=== PATIENT | female | born 1950 | race African-American/Black ===

== ENCOUNTER 2016-08-20 17:08 | Emergency (ER) | payer OTHER ==
[~2016-08-20] VITALS: Ht 152.4 cm; Wt 49.1 kg
[~2016-08-20 17:08] MED LIST: AMLO-512 PO; ASPI-556 PO; CHOL20004 PO; FERR-89 PO; FOLI1CAP2 PO
[2016-08-20 17:11] VITALS: BP 159/93
[2016-08-20] MEDS ORDERED: INSLAN SQ (17:21)
[2016-08-20] MEDS ORDERED: OXYC10TA93 PO (17:21)
[2016-08-20] MEDS ORDERED: INSU100V3 SQ (17:21)
[2016-08-20 17:22] LABS: GLUCOSE,POINT OF CARE 61 MG/DL (70-110)
[2016-08-20 18:07] LABS: GLUCOSE,POINT OF CARE 75 MG/DL (70-110)
== END 2016-08-20 18:45 | disposition left against medical advice (07) ==
LOC: EMS 17:15
DX: R53.1 Weakness (principal); E11.29 Type 2 diabetes mellitus with other diabetic kidney complication; N28.9 Disorder of kidney and ureter, unspecified; F17.210 Nicotine dependence, cigarettes, uncomplicated; Z53.21 Procedure and treatment not carried out due to patient leaving prior to being seen by health care provider
CPT/HCPCS: 82962

== ENCOUNTER 2016-08-22 10:51 | Emergency (ER) | payer OTHER ==
[~2016-08-22] VITALS: Ht 152.4 cm; Wt 42.0 kg
[~2016-08-22 10:51] MED LIST changes: +INSLAN SQ; +INSU100V3 SQ; +OXYC10TA93 PO
[2016-08-22 11:50] LABS: CALCIUM, TOTAL 8.6 mg/dL (8.8-10.5); CREATININE 5.66 mg/dL (0.60-1.30); POTASSIUM 4.4 mmol/L (3.5-5.1)
[2016-08-22 11:56] LABS: BILIRUBIN,TOTAL 0.5 mg/dL (0.1-1.0); TOTAL PROTEIN, SERUM 8.8 g/dL (6.4-8.2)
[2016-08-22 12:02] LABS: ALBUMIN 3.1 g/dL (3.4-5.0)
[2016-08-22 12:06] LABS: EOSINOPHILS % (AUTO) 1.5 % (1.0-6.0); HEMATOCRIT 35.1 % (36-46); HEMOGLOBIN 10.9 g/dL (12.0-16.0); LYMPHOCYTES # (AUTO) 1.3 K/uL (1.0-4.8); LYMPHOCYTES % (AUTO) 17.2 % (22.0-44.0); MEAN CORPUSCULAR HEMOGLOBIN 29.5 pg (26.0-34.0); MEAN CORPUSCULAR HGB CONC 31.1 G/dL (31.0-37.0); MEAN CORPUSCULAR VOLUME 95 fL (80-100); MONOCYTES # (AUTO) 0.5 K/uL (0.1-1.0); NEUTROPHILS # (AUTO) 5.6 K/uL (1.8-7.7); NEUTROPHILS % (AUTO) 75.3 % (40.0-70.0); PLATELET COUNT (AUTO) 260 K/uL (150-450); RED BLOOD CELL COUNT(AUTO) 3.71 MIL/uL (4.00-5.20); RED CELL DISTRIBUTION WIDTH 16.5 % (11.5-14.5); WHITE BLOOD COUNT (AUTO) 7.5 K/uL (4.5-11.0)
[2016-08-22] MEDS ORDERED: ONDANSETRON HCL 4 MG/2 ML VIAL IM ONE (13:00)
[2016-08-22] MEDS ORDERED: MORPHINE SULFATE 2 MG/ML SYRINGE IM ONE (13:00)
[2016-08-22 13:22] LABS: GLUCOSE,POINT OF CARE 102 MG/DL (70-110)
[2016-08-22] MEDS ORDERED: ONDANSETRON HCL 4 MG/2 ML VIAL IVP ONE (14:00)
[2016-08-22] MEDS ORDERED: MORPHINE SULFATE 4 MG/ML SYRINGE IVP ONE (14:00)
[2016-08-22 14:01] VITALS: BP 153/79
[2016-08-22 14:02] LABS: GLUCOSE,POINT OF CARE 37 MG/DL (70-110)
[2016-08-22 14:41] LABS: GLUCOSE,POINT OF CARE 43 MG/DL (70-110)
[2016-08-22 14:41] LABS: GLUCOSE,POINT OF CARE 50 MG/DL (70-110)
[2016-08-22] MEDS ORDERED: DEXTROSE 50%-WATER 25 GM/50 ML SYRINGE IVP ONE (14:45)
[2016-08-22] MEDS ORDERED: DEXTROSE 40% LEMON 37.5 GM/TUBE GEL [15 GM GLUCOSE] PO ONE (14:45)
[2016-08-22 15:01] LABS: GLUCOSE,POINT OF CARE 64 MG/DL (70-110)
[2016-08-22 15:12] LABS: GLUCOSE,POINT OF CARE 90 MG/DL (70-110)
== END 2016-08-22 15:21 | disposition home or self-care (01) ==
LOC: EMS 10:52
DX: S20.212A Contusion of left front wall of thorax, initial encounter (principal); I50.9 Heart failure, unspecified; E11.22 Type 2 diabetes mellitus with diabetic chronic kidney disease; N18.6 End stage renal disease; D64.9 Anemia, unspecified; F17.210 Nicotine dependence, cigarettes, uncomplicated; Z99.2 Dependence on renal dialysis; Z79.4 Long term (current) use of insulin; Z79.82 Long term (current) use of aspirin; X58.XXXA Exposure to other specified factors, initial encounter; Y93.89 Activity, other specified; Y92.89 Other specified places as the place of occurrence of the external cause; Y99.8 Other external cause status
CPT/HCPCS: 36415; 71010; 80053; 82962; 83880; 84484; 85025; 93005; 96374; 96375; 99285; J2270; J2405

== ENCOUNTER 2016-08-30 19:58 | Inpatient (IN) | payer OTHER ==
[~2016-08-30] VITALS: Ht 165.1 cm; Wt 48.7 kg
[2016-08-30 20:31] LABS: GLUCOSE COMMENT 1 Repeated; GLUCOSE,POINT OF CARE 239 MG/DL (70-110)
[2016-08-30 22:17] LABS: GLUCOSE,POINT OF CARE 168 MG/DL (70-110)
[2016-08-30] MEDS ORDERED: HYDROmorphone 2 MG/ML SYRINGE IVP ONE (23:00)
[2016-08-30] MEDS ORDERED: ONDANSETRON HCL 4 MG/2 ML VIAL IVP ONE (23:00)
[2016-08-30] MEDS ORDERED: ONDANSETRON HCL 4 MG/2 ML VIAL IVP PRN (23:15)
[2016-08-30] MEDS ORDERED: ACETAMINOPHEN 325 MG TABLET PO PRN (23:15)
[2016-08-30] MEDS ORDERED: 0.9% SODIUM CHLORIDE 10 ML SYRINGE IVP PRN (23:15)
[2016-08-30 23:22] LABS: BASOPHILS # (AUTO) 0.03 K/uL (0.00-0.20); BASOPHILS % (AUTO) 0.3 % (0.0-2.0); EOSINOPHILS # (AUTO) 0.21 K/uL (0.00-0.70); HEMATOCRIT 30.1 % (36-46); HEMOGLOBIN 9.7 g/dL (12.0-16.0); LYMPHOCYTES # (AUTO) 1.3 K/uL (1.0-4.8); LYMPHOCYTES % (AUTO) 13.1 % (22.0-44.0); MEAN CORPUSCULAR HEMOGLOBIN 30.2 pg (26.0-34.0); MEAN CORPUSCULAR HGB CONC 32.2 G/dL (31.0-37.0); MEAN CORPUSCULAR VOLUME 94 fL (80-100); MONOCYTES # (AUTO) 0.7 K/uL (0.1-1.0); MONOCYTES % (AUTO) 7.1 % (2.0-9.0); NEUTROPHILS # (AUTO) 7.9 K/uL (1.8-7.7); NEUTROPHILS % (AUTO) 77.4 % (40.0-70.0); PLATELET COUNT (AUTO) 346 K/uL (150-450); RED BLOOD CELL COUNT(AUTO) 3.21 MIL/uL (4.00-5.20); RED CELL DISTRIBUTION WIDTH 16.8 % (11.5-14.5); WHITE BLOOD COUNT (AUTO) 10.2 K/uL (4.5-11.0)
[2016-08-30 23:30] LABS: CALCIUM, TOTAL 8.3 mg/dL (8.8-10.5); CREATININE 5.86 mg/dL (0.60-1.30); POTASSIUM 4.6 mmol/L (3.5-5.1)
[2016-08-30 23:36] LABS: ALBUMIN 2.7 g/dL (3.4-5.0); BILIRUBIN,TOTAL 0.5 mg/dL (0.1-1.0); TOTAL PROTEIN, SERUM 8.3 g/dL (6.4-8.2)
[2016-08-30 23:39] LABS: LACTIC ACID 1.6 mmol/L (0.4-2.0)
[2016-08-31] MEDS ORDERED: HydrALAZINE HCL 20 MG/ML VIAL IVP PRN (02:00)
[2016-08-31 05:00] VITALS: BP 156/88
[2016-08-31] MEDS: OxyCODONE HCL 10 MG IR TABLET PO PRN (05:22)
[2016-08-31] MEDS ORDERED: DEXTROSE 50%-WATER 25 GM/50 ML SYRINGE IVP PRN (05:45)
[2016-08-31 05:57] LABS: GLUCOSE,POINT OF CARE 204 MG/DL (70-110)
[2016-08-31] MEDS ORDERED: OxyCODONE HCL/ACETAMINOPHEN 5-325 MG TABLET PO PRN (06:00)
[2016-08-31] MEDS ORDERED: ONDANSETRON HCL 4 MG/2 ML VIAL IVP PRN (06:00)
[2016-08-31] MEDS ORDERED: 0.9% SODIUM CHLORIDE 10 ML SYRINGE IVP PRN (06:00)
[2016-08-31 07:43] VITALS: BP 151/89
[2016-08-31] MEDS: FERROUS SULFATE 325 MG EC TABLET PO SCH ×2 (07:47→17:36)
[2016-08-31] MEDS: DOCUSATE SODIUM 100 MG CAPSULE PO SCH ×2 (07:48→21:08)
[2016-08-31] MEDS: PANTOPRAZOLE SODIUM 40 MG/VIAL IVP SCH (07:48)
[2016-08-31] MEDS: VITAMIN B COMP/VIT C/FOLIC ACID CAPSULE PO SCH (07:48)
[2016-08-31] MEDS: ASPIRIN 81 MG EC TABLET PO SCH (07:48)
[2016-08-31] MEDS: AmLODIPine BESYLATE 10 MG TABLET PO SCH (07:48)
[2016-08-31] MEDS: INSULIN DETEMIR 100 UNITS/ML SQ SCH (07:50)
[2016-08-31] MEDS: INSULIN REGULAR, HUMAN 100 UNITS/ML SQ SCH ×3 (08:21→17:33)
[2016-08-31 11:08] VITALS: BP 158/90
[2016-08-31 11:43] LABS: GLUCOSE COMMENT 1 Received Meds; GLUCOSE,POINT OF CARE 184 MG/DL (70-110)
[2016-08-31] MEDS ORDERED: SODIUM CHLORIDE 0.9% 2,000 ML IV ONE (12:37)
[2016-08-31] MEDS ORDERED: MANNITOL 25%-12.5 GM/50 ML VIAL IVP PRN (13:45)
[2016-08-31 15:49] VITALS: BP 140/75
[2016-08-31 17:32] LABS: GLUCOSE COMMENT 1 Received Meds; GLUCOSE,POINT OF CARE 105 MG/DL (70-110)
[2016-08-31] MEDS: EPOETIN ALFA 10,000 UNITS/ML 2 ML VIAL SQ SCH (17:38)
[2016-08-31 19:15] VITALS: BP 142/84
[2016-08-31 21:37] LABS: GLUCOSE,POINT OF CARE 98 MG/DL (70-110)
[2016-09-01 00:37] VITALS: BP 139/78
[2016-09-01 04:44] VITALS: BP 142/75
[2016-09-01 06:17] LABS: GLUCOSE,POINT OF CARE 146 MG/DL (70-110)
[2016-09-01] MEDS: VITAMIN B COMP/VIT C/FOLIC ACID CAPSULE PO SCH (08:02)
[2016-09-01] MEDS: OxyCODONE HCL/ACETAMINOPHEN 5-325 MG TABLET PO PRN ×2 (08:02→20:54)
[2016-09-01] MEDS: FERROUS SULFATE 325 MG EC TABLET PO SCH (08:02)
[2016-09-01] MEDS: DOCUSATE SODIUM 100 MG CAPSULE PO SCH ×2 (08:03→20:54)
[2016-09-01] MEDS: ASPIRIN 81 MG EC TABLET PO SCH (08:03)
[2016-09-01] MEDS: PANTOPRAZOLE SODIUM 40 MG/VIAL IVP SCH (08:03)
[2016-09-01] MEDS: INSULIN REGULAR, HUMAN 100 UNITS/ML SQ SCH (08:04)
[2016-09-01] MEDS: AmLODIPine BESYLATE 10 MG TABLET PO SCH (08:06)
[2016-09-01] MEDS: INSULIN DETEMIR 100 UNITS/ML SQ SCH (08:06)
[2016-09-01 08:30] VITALS: BP 150/84
[2016-09-01 08:53] LABS: BASOPHILS % (AUTO) 0.2 % (0.0-2.0); EOSINOPHILS % (AUTO) 2.3 % (1.0-6.0); HEMATOCRIT 29.2 % (36-46); HEMOGLOBIN 9.2 g/dL (12.0-16.0); LYMPHOCYTES # (AUTO) 1.3 K/uL (1.0-4.8); LYMPHOCYTES % (AUTO) 13.6 % (22.0-44.0); MEAN CORPUSCULAR HEMOGLOBIN 29.9 pg (26.0-34.0); MEAN CORPUSCULAR HGB CONC 31.6 G/dL (31.0-37.0); MEAN CORPUSCULAR VOLUME 95 fL (80-100); MONOCYTES # (AUTO) 0.9 K/uL (0.1-1.0); MONOCYTES % (AUTO) 8.8 % (2.0-9.0); NEUTROPHILS # (AUTO) 7.4 K/uL (1.8-7.7); NEUTROPHILS % (AUTO) 75.1 % (40.0-70.0); PLATELET COUNT (AUTO) 354 K/uL (150-450); RED BLOOD CELL COUNT(AUTO) 3.08 MIL/uL (4.00-5.20); RED CELL DISTRIBUTION WIDTH 17.6 % (11.5-14.5); WHITE BLOOD COUNT (AUTO) 9.9 K/uL (4.5-11.0)
[2016-09-01 09:12] LABS: CALCIUM, TOTAL 8.2 mg/dL (8.8-10.5); CREATININE 3.53 mg/dL (0.60-1.30); PHOSPHORUS 4.9 mg/dL (2.5-4.9); POTASSIUM 4.5 mmol/L (3.5-5.1)
[2016-09-01 11:15] VITALS: BP 140/82
[2016-09-01 12:47] LABS: GLUCOSE COMMENT 1 Repeated; GLUCOSE COMMENT 3 Received Meds; GLUCOSE,POINT OF CARE 48 MG/DL (70-110)
[2016-09-01 12:52] LABS: GLUCOSE,POINT OF CARE 83 MG/DL (70-110)
[2016-09-01 16:00] VITALS: BP 141/76
[2016-09-01 19:22] VITALS: BP 141/76
[2016-09-01 19:51] LABS: GLUCOSE,POINT OF CARE 141 MG/DL (70-110)
[2016-09-01] MEDS ORDERED: OXYGEN THERAPY IH SCH (20:00)
[2016-09-02 00:18] VITALS: BP 142/78
[2016-09-02] MEDS: OxyCODONE HCL 10 MG IR TABLET PO PRN ×2 (00:34→10:31)
[2016-09-02 01:32] LABS: GLUCOSE,POINT OF CARE 118 MG/DL (70-110)
[2016-09-02 05:00] VITALS: BP 138/79
[2016-09-02] MEDS: VITAMIN B COMP/VIT C/FOLIC ACID CAPSULE PO SCH (07:53)
[2016-09-02] MEDS: ASPIRIN 81 MG EC TABLET PO SCH (07:54)
[2016-09-02] MEDS: DOCUSATE SODIUM 100 MG CAPSULE PO SCH ×2 (07:54→20:51)
[2016-09-02] MEDS: AmLODIPine BESYLATE 10 MG TABLET PO SCH (07:54)
[2016-09-02] MEDS: PANTOPRAZOLE SODIUM 40 MG/VIAL IVP SCH (07:54)
[2016-09-02] MEDS: EPOETIN ALFA 10,000 UNITS/ML 2 ML VIAL SQ SCH (07:56)
[2016-09-02 08:13] VITALS: BP 156/91
[2016-09-02] MEDS: FERROUS SULFATE 325 MG EC TABLET PO SCH (08:42)
[2016-09-02 08:51] LABS: CALCIUM, TOTAL 8.7 mg/dL (8.8-10.5); CREATININE 4.81 mg/dL (0.60-1.30); POTASSIUM 5.3 mmol/L (3.5-5.1)
[2016-09-02] MEDS: INSULIN DETEMIR 100 UNITS/ML SQ SCH (09:00)
[2016-09-02] MEDS ORDERED: SODIUM CHLORIDE 0.9% 2,000 ML IV ONE (11:09)
[2016-09-02 11:25] VITALS: BP 139/90
[2016-09-02] MEDS: INSULIN ASPART 100 UNITS/ML SQ PRN (11:49)
[2016-09-02 11:52] LABS: GLUCOSE COMMENT 1 Received Meds; GLUCOSE,POINT OF CARE 192 MG/DL (70-110)
[2016-09-02 12:23] LABS: GLUCOSE,POINT OF CARE 121 MG/DL (70-110)
[2016-09-02 16:10] VITALS: BP 138/88
[2016-09-02 17:12] LABS: GLUCOSE,POINT OF CARE 106 MG/DL (70-110)
[2016-09-02] MEDS: OxyCODONE HCL/ACETAMINOPHEN 5-325 MG TABLET PO PRN (20:55)
[2016-09-02 21:17] VITALS: BP 137/78
[2016-09-02 22:02] LABS: GLUCOSE,POINT OF CARE 137 MG/DL (70-110)
[2016-09-03 07:42] VITALS: BP 139/78
[2016-09-03] MEDS: FERROUS SULFATE 325 MG EC TABLET PO SCH ×3 (08:00→18:03)
[2016-09-03 08:14] LABS: VITAMIN B12 LEVEL 369 pg/mL (211-911)
[2016-09-03] MEDS: ASPIRIN 81 MG EC TABLET PO SCH (08:14)
[2016-09-03] MEDS: AmLODIPine BESYLATE 10 MG TABLET PO SCH (08:14)
[2016-09-03] MEDS: VITAMIN B COMP/VIT C/FOLIC ACID CAPSULE PO SCH (08:14)
[2016-09-03] MEDS: DOCUSATE SODIUM 100 MG CAPSULE PO SCH ×2 (08:15→20:54)
[2016-09-03] MEDS: OxyCODONE HCL/ACETAMINOPHEN 5-325 MG TABLET PO PRN (08:15)
[2016-09-03] MEDS: PANTOPRAZOLE SODIUM 40 MG/VIAL IVP SCH (08:16)
[2016-09-03] MEDS: INSULIN DETEMIR 100 UNITS/ML SQ SCH (08:17)
[2016-09-03 08:41] LABS: GLUCOSE,POINT OF CARE 156 MG/DL (70-110)
[2016-09-03 11:52] LABS: GLUCOSE COMMENT 1 Received Meds; GLUCOSE,POINT OF CARE 256 MG/DL (70-110)
[2016-09-03 12:18] VITALS: BP 152/70
[2016-09-03] MEDS: INSULIN ASPART 100 UNITS/ML SQ PRN (12:56)
[2016-09-03] MEDS: OxyCODONE HCL 10 MG IR TABLET PO PRN (13:59)
[2016-09-03] MEDS ORDERED: INSU100V12 SQ (15:47)
[2016-09-03] MEDS ORDERED: INSNOV SQ (15:49)
[2016-09-03 16:01] VITALS: BP 134/63
[2016-09-03 17:42] LABS: GLUCOSE COMMENT 1 Doctor Notified; GLUCOSE,POINT OF CARE 47 MG/DL (70-110)
[2016-09-03 19:53] VITALS: BP 119/77
[2016-09-03 23:30] VITALS: BP 122/70
[2016-09-04 03:15] VITALS: BP 118/68
[2016-09-04 05:01] LABS: GLUCOSE,POINT OF CARE 105 MG/DL (70-110)
[2016-09-04 07:19] VITALS: BP 148/84
[2016-09-04] MEDS: DOCUSATE SODIUM 100 MG CAPSULE PO SCH (08:15)
[2016-09-04] MEDS: ASPIRIN 81 MG EC TABLET PO SCH (08:15)
[2016-09-04] MEDS: AmLODIPine BESYLATE 10 MG TABLET PO SCH (08:16)
[2016-09-04] MEDS: VITAMIN B COMP/VIT C/FOLIC ACID CAPSULE PO SCH (08:16)
[2016-09-04] MEDS: EPOETIN ALFA 10,000 UNITS/ML 2 ML VIAL SQ SCH (08:18)
[2016-09-04] MEDS: FERROUS SULFATE 325 MG EC TABLET PO SCH (08:22)
[2016-09-04] MEDS: PANTOPRAZOLE SODIUM 40 MG/VIAL IVP SCH (08:22)
[2016-09-04] MEDS: OxyCODONE HCL/ACETAMINOPHEN 5-325 MG TABLET PO PRN (08:23)
[2016-09-04] MEDS: INSULIN DETEMIR 100 UNITS/ML SQ SCH (09:00)
[2016-09-04 11:17] LABS: GLUCOSE,POINT OF CARE 128 MG/DL (70-110)
[2016-09-04 11:22] LABS: GLUCOSE,POINT OF CARE 108 MG/DL (70-110)
[2016-09-04 12:00] VITALS: BP 136/68
[2016-09-04 12:17] LABS: GLUCOSE,POINT OF CARE 149 MG/DL (70-110)
[2016-09-04 16:30] VITALS: BP 139/88
[2016-09-04] MEDS ORDERED: SODIUM CHLORIDE 0.9% 2,000 ML IV ONE (16:32)
[2016-09-04 18:41] LABS: GLUCOSE,POINT OF CARE 91 MG/DL (70-110)
== END 2016-09-04 20:00 | DRG 194 ==
LOC: EMS 20:02 → 6N 23:15
PROVIDERS: ADMIT Internal Medicine; ATTEND Internal Medicine
PROC: 5A1D60Z (ICD-10-PCS; principal; 2016-08-31)
DX: I13.2 Hypertensive heart and chronic kidney disease with heart failure and with stage 5 chronic kidney disease, or end stage renal disease (principal); G72.81 Critical illness myopathy; E43 Unspecified severe protein-calorie malnutrition; G93.41 Metabolic encephalopathy; E87.79 Other fluid overload; N18.6 End stage renal disease; Z68.1 Body mass index [BMI] 19.9 or less, adult; E87.5 Hyperkalemia; E11.22 Type 2 diabetes mellitus with diabetic chronic kidney disease; R29.6 Repeated falls; F17.210 Nicotine dependence, cigarettes, uncomplicated; I50.9 Heart failure, unspecified; E11.65 Type 2 diabetes mellitus with hyperglycemia; D63.8 Anemia in other chronic diseases classified elsewhere; B19.20 Unspecified viral hepatitis C without hepatic coma; E21.3 Hyperparathyroidism, unspecified; K21.9 Gastro-esophageal reflux disease without esophagitis; F19.90 Other psychoactive substance use, unspecified, uncomplicated; R62.7 Adult failure to thrive; Z99.2 Dependence on renal dialysis; Z79.891 Long term (current) use of opiate analgesic; Z79.4 Long term (current) use of insulin; Z79.82 Long term (current) use of aspirin; Z79.899 Other long term (current) drug therapy; Z91.15 Patient's noncompliance with renal dialysis; Z74.01 Bed confinement status
CPT/HCPCS: 70450; 80307; 82607; 82746; 82962; 83605; 84100; 87040; 87081; 90935; 93005; 96374; 96375; 97161; 99285; C9113; J0360; J0885; J1170; J1815; J2405; J7030

== ENCOUNTER 2016-09-11 23:10 | Inpatient (IN) | payer OTHER ==
[~2016-09-11] VITALS: Ht 152.4 cm; Wt 58.0 kg
[~2016-09-11 23:10] MED LIST changes: +INSNOV SQ; +INSU100V12 SQ
[2016-09-11] MEDS ORDERED: PANT20TA PO (23:37)
[2016-09-11] MEDS ORDERED: EPOE4000 SQ (23:37)
[2016-09-11 23:52] LABS: BASOPHILS # (AUTO) 0.05 K/uL (0.00-0.20); BASOPHILS % (AUTO) 0.5 % (0.0-2.0); EOSINOPHILS # (AUTO) 0.15 K/uL (0.00-0.70); EOSINOPHILS % (AUTO) 1.28 % (1.0-6.0); HEMATOCRIT 25.2 % (36-46); HEMOGLOBIN 8.2 g/dL (12.0-16.0); LYMPHOCYTES # (AUTO) 1.6 K/uL (1.0-4.8); LYMPHOCYTES % (AUTO) 13.8 % (22.0-44.0); MEAN CORPUSCULAR HEMOGLOBIN 29.7 pg (26.0-34.0); MEAN CORPUSCULAR HGB CONC 32.7 G/dL (31.0-37.0); MEAN CORPUSCULAR VOLUME 91 fL (80-100); MONOCYTES # (AUTO) 1.2 K/uL (0.1-1.0); MONOCYTES % (AUTO) 10.8 % (2.0-9.0); NEUTROPHILS # (AUTO) 8.5 K/uL (1.8-7.7); NEUTROPHILS % (AUTO) 73.7 % (40.0-70.0); PLATELET COUNT (AUTO) 464 K/uL (150-450); RED BLOOD CELL COUNT(AUTO) 2.78 MIL/uL (4.00-5.20); RED CELL DISTRIBUTION WIDTH 16.5 % (11.5-14.5); WHITE BLOOD COUNT (AUTO) 11.5 K/uL (4.5-11.0)
[2016-09-11 23:56] LABS: CREATININE 3.8 mg/dL (0.60-1.30); POTASSIUM 3.4 mmol/L (3.5-5.1)
[2016-09-12 00:02] LABS: ALBUMIN 2.3 g/dL (3.4-5.0); BILIRUBIN,TOTAL 0.3 mg/dL (0.1-1.0); TOTAL PROTEIN, SERUM 7.6 g/dL (6.4-8.2)
[2016-09-12 00:05] LABS: LACTIC ACID 0.5 mmol/L (0.4-2.0)
[2016-09-12 00:40] LABS: APPEARANCE,URINE TURBID (CLEAR); GLUCOSE, URINE (UA) NEGATIVE (NEGATIVE); KETONES,URINE TRACE mg/dL (NEGATIVE); LEUKOCYTE ESTERASE ,URINE SMALL (NEGATIVE); OCCULT BLOOD,URINE SMALL (NEGATIVE); PROTEIN,URINE SEE CONFIRM (NEGATIVE)
[2016-09-12 01:17] LABS: SULFOSALICYLIC ACID,URINE 2+ (Negative)
[2016-09-12 01:18] LABS: SQUAMOUS EPITHELIAL CELL,UR Rare /LPF (None Seen)
[2016-09-12 03:53] VITALS: BP 157/77
[2016-09-12] MEDS ORDERED: INFLUENZA VIRUS VACCINE QVS 2016-17 (3YR+)/PF 60 MCG/0.5 ML SYRINGE IM ONE (04:15)
[2016-09-12] MEDS ORDERED: -PHARMACY VACCINE NOTE- MISC ONE ×2 (04:15)
[2016-09-12 04:42] LABS: GLUCOSE COMMENT 1 Juice/Food/D50 Given; GLUCOSE,POINT OF CARE 69 MG/DL (70-110)
[2016-09-12] MEDS ORDERED: ALBUTEROL SULFATE 2.5 MG/0.5 ML NEB SOLUTION NEB PRN (06:45)
[2016-09-12] MEDS ORDERED: DEXTROSE 50%-WATER 25 GM/50 ML SYRINGE IVP PRN (06:45)
[2016-09-12] MEDS ORDERED: BISACODYL 10 MG RECTAL RECTAL SUPPOSITORY PR PRN (06:45)
[2016-09-12 06:51] LABS: GLUCOSE COMMENT 1 Juice/Food/D50 Given; GLUCOSE,POINT OF CARE 72 MG/DL (70-110)
[2016-09-12] MEDS ORDERED: VANCOMYCIN HCL 1 GM/D5% WATER 200 ML IV PRN (07:00)
[2016-09-12 07:29] VITALS: BP 165/71
[2016-09-12] MEDS ORDERED: VANCOMYCIN HCL 1.25 GM in DEXTROSE 5%-WATER 250 ML IV ONE (08:00)
[2016-09-12] MEDS: PANTOPRAZOLE SODIUM 40 MG DR TABLET PO SCH (08:39)
[2016-09-12] MEDS: DOCUSATE SODIUM 100 MG CAPSULE PO SCH ×2 (08:39→20:18)
[2016-09-12] MEDS: VITAMIN B COMP/VIT C/FOLIC ACID CAPSULE PO SCH (08:39)
[2016-09-12] MEDS: ASPIRIN 81 MG CHEWABLE TABLET PO SCH (08:39)
[2016-09-12] MEDS: HEPARIN SODIUM,PORCINE 5,000 UNITS/ML VIAL SQ SCH ×2 (08:40→20:17)
[2016-09-12] MEDS ORDERED: DiphenhydrAMINE HCL 50 MG/ML VIAL IVP ONE (10:00)
[2016-09-12] MEDS ORDERED: SODIUM CHLORIDE 0.9% 500 ML IV ONE (10:47)
[2016-09-12 11:32] LABS: GLUCOSE,POINT OF CARE 93 MG/DL (70-110)
[2016-09-12 11:37] VITALS: BP 141/87
[2016-09-12 16:00] VITALS: BP 147/69
[2016-09-12 19:37] LABS: GLUCOSE,POINT OF CARE 93 MG/DL (70-110)
[2016-09-12] MEDS: INSULIN ASPART 100 UNITS/ML SQ PRN (20:17)
[2016-09-12] MEDS: ACETAMINOPHEN 325 MG TABLET PO PRN (20:18)
[2016-09-12 20:49] VITALS: BP 148/87
[2016-09-12 21:21] LABS: GLUCOSE COMMENT 1 Received Meds; GLUCOSE,POINT OF CARE 186 MG/DL (70-110)
[2016-09-12 23:49] VITALS: BP 114/57
[2016-09-13] MEDS: ACETAMINOPHEN 325 MG TABLET PO PRN (04:20)
[2016-09-13 04:55] VITALS: BP 125/74
[2016-09-13] MEDS: INSULIN ASPART 100 UNITS/ML SQ PRN ×2 (05:48→18:09)
[2016-09-13 07:47] LABS: GLUCOSE COMMENT 1 Received Meds; GLUCOSE,POINT OF CARE 176 MG/DL (70-110)
[2016-09-13] MEDS: PANTOPRAZOLE SODIUM 40 MG DR TABLET PO SCH (07:58)
[2016-09-13] MEDS: HEPARIN SODIUM,PORCINE 5,000 UNITS/ML VIAL SQ SCH ×2 (07:58→20:50)
[2016-09-13] MEDS: OxyCODONE HCL/ACETAMINOPHEN 5-325 MG TABLET PO PRN ×3 (07:58→22:27)
[2016-09-13] MEDS: VITAMIN B COMP/VIT C/FOLIC ACID CAPSULE PO SCH (07:58)
[2016-09-13] MEDS: ASPIRIN 81 MG CHEWABLE TABLET PO SCH (07:58)
[2016-09-13] MEDS: DOCUSATE SODIUM 100 MG CAPSULE PO SCH ×2 (07:58→20:50)
[2016-09-13 08:20] VITALS: BP 143/73
[2016-09-13] MEDS ORDERED: EPOETIN ALFA 10,000 UNITS/ML VIAL SQ SCH (09:00)
[2016-09-13 11:43] VITALS: BP 144/84
[2016-09-13 12:17] LABS: GLUCOSE COMMENT 1 Received Meds; GLUCOSE,POINT OF CARE 142 MG/DL (70-110)
[2016-09-13] MEDS ORDERED: SODIUM CHLORIDE 0.9% 0 ML ONE (12:55)
[2016-09-13] MEDS ORDERED: SODIUM CHLORIDE 0.9% 1,000 ML IV ONE ×2 (12:56)
[2016-09-13 16:45] LABS: BASOPHILS % (AUTO) 0.3 % (0.0-2.0); EOSINOPHILS % (AUTO) 2.5 % (1.0-6.0); HEMATOCRIT 28.7 % (36-46); HEMOGLOBIN 9.1 g/dL (12.0-16.0); LYMPHOCYTES # (AUTO) 1.5 K/uL (1.0-4.8); LYMPHOCYTES % (AUTO) 11.6 % (22.0-44.0); MEAN CORPUSCULAR HEMOGLOBIN 28.9 pg (26.0-34.0); MEAN CORPUSCULAR HGB CONC 31.6 G/dL (31.0-37.0); MEAN CORPUSCULAR VOLUME 91 fL (80-100); MONOCYTES # (AUTO) 0.9 K/uL (0.1-1.0); MONOCYTES % (AUTO) 6.5 % (2.0-9.0); NEUTROPHILS # (AUTO) 10.4 K/uL (1.8-7.7); NEUTROPHILS % (AUTO) 79.1 % (40.0-70.0); PLATELET COUNT (AUTO) 575 K/uL (150-450); RED BLOOD CELL COUNT(AUTO) 3.14 MIL/uL (4.00-5.20); WHITE BLOOD COUNT (AUTO) 13.2 K/uL (4.5-11.0)
[2016-09-13 17:05] LABS: ALBUMIN 2.6 g/dL (3.4-5.0); BILIRUBIN,TOTAL 0.3 mg/dL (0.1-1.0); CALCIUM, TOTAL 8.6 mg/dL (8.8-10.5); CREATININE 1.46 mg/dL (0.60-1.30); TOTAL PROTEIN, SERUM 8.8 g/dL (6.4-8.2)
[2016-09-13 17:08] LABS: POTASSIUM 2.7 mmol/L (3.5-5.1)
[2016-09-13] MEDS: CefTRIAXone 1 GM/DEXTROSE 50 ML IV SCH (17:59)
[2016-09-13 19:47] LABS: GLUCOSE,POINT OF CARE 141 MG/DL (70-110)
[2016-09-13 20:43] VITALS: BP 140/71
[2016-09-13] MEDS ORDERED: POTASSIUM CHLORIDE 20 MEQ ER TABLET PO ONE (21:15)
[2016-09-13 21:36] LABS: GLUCOSE,POINT OF CARE 92 MG/DL (70-110)
[2016-09-13 21:36] LABS: GLUCOSE COMMENT 1 Juice/Food/D50 Given; GLUCOSE,POINT OF CARE 66 MG/DL (70-110)
[2016-09-14 00:10] VITALS: BP 132/65
[2016-09-14 04:35] VITALS: BP 125/57
[2016-09-14] MEDS: OxyCODONE HCL/ACETAMINOPHEN 5-325 MG TABLET PO PRN ×2 (05:02→12:01)
[2016-09-14 05:27] LABS: GLUCOSE,POINT OF CARE 106 MG/DL (70-110)
[2016-09-14] MEDS: HEPARIN SODIUM,PORCINE 5,000 UNITS/ML VIAL SQ SCH (08:27)
[2016-09-14] MEDS: VITAMIN B COMP/VIT C/FOLIC ACID CAPSULE PO SCH (08:27)
[2016-09-14] MEDS: ASPIRIN 81 MG CHEWABLE TABLET PO SCH (08:27)
[2016-09-14] MEDS: PANTOPRAZOLE SODIUM 40 MG DR TABLET PO SCH (08:27)
[2016-09-14] MEDS: DOCUSATE SODIUM 100 MG CAPSULE PO SCH (08:27)
[2016-09-14 11:23] LABS: BASOPHILS # (AUTO) 0.04 K/uL (0.00-0.20); BASOPHILS % (AUTO) 0.4 % (0.0-2.0); EOSINOPHILS # (AUTO) 0.31 K/uL (0.00-0.70); EOSINOPHILS % (AUTO) 3.37 % (1.0-6.0); HEMATOCRIT 25.7 % (36-46); HEMOGLOBIN 8.3 g/dL (12.0-16.0); LYMPHOCYTES # (AUTO) 1.7 K/uL (1.0-4.8); LYMPHOCYTES % (AUTO) 18.5 % (22.0-44.0); MEAN CORPUSCULAR HEMOGLOBIN 29.5 pg (26.0-34.0); MEAN CORPUSCULAR HGB CONC 32.4 G/dL (31.0-37.0); MEAN CORPUSCULAR VOLUME 91 fL (80-100); MONOCYTES % (AUTO) 10.4 % (2.0-9.0); NEUTROPHILS # (AUTO) 6.2 K/uL (1.8-7.7); NEUTROPHILS % (AUTO) 67.3 % (40.0-70.0); PLATELET COUNT (AUTO) 495 K/uL (150-450); RED BLOOD CELL COUNT(AUTO) 2.83 MIL/uL (4.00-5.20); RED CELL DISTRIBUTION WIDTH 17.2 % (11.5-14.5); WHITE BLOOD COUNT (AUTO) 9.2 K/uL (4.5-11.0)
[2016-09-14 11:24] LABS: RBC MORPHOLOGY COMMENT ABNORMAL RBC MORPH
[2016-09-14 11:37] LABS: ALBUMIN 2.1 g/dL (3.4-5.0); BILIRUBIN,TOTAL 0.2 mg/dL (0.1-1.0); CREATININE 3.73 mg/dL (0.60-1.30); MAGNESIUM 1.9 mg/dL (1.80-2.40); PHOSPHORUS 4.1 mg/dL (2.5-4.9); POTASSIUM 3.7 mmol/L (3.5-5.1); TOTAL PROTEIN, SERUM 7.4 g/dL (6.4-8.2)
[2016-09-14 12:02] LABS: GLUCOSE,POINT OF CARE 125 MG/DL (70-110)
[2016-09-14 12:44] VITALS: BP 129/66
[2016-09-14] MEDS ORDERED: POTASSIUM CHLORIDE 20 MEQ ER TABLET PO ONE (12:45)
[2016-09-14] MEDS ORDERED: VANCOMYCIN HCL 1 GM/D5% WATER 200 ML IV ONE (13:00)
[2016-09-14 16:37] VITALS: BP 149/82
[2016-09-14] MEDS: ACETAMINOPHEN 325 MG TABLET PO PRN (16:45)
[2016-09-14] MEDS: CefTRIAXone 1 GM/DEXTROSE 50 ML IV SCH (16:45)
[2016-09-14] MEDS ORDERED: ASPI-556 PO (16:55)
[2016-09-14] MEDS ORDERED: DSS100 PO (16:55)
[2016-09-14] MEDS ORDERED: HEPA500035 SQ (16:57)
[2016-09-14] MEDS ORDERED: PANT20TA PO (16:58)
[2016-09-14] MEDS ORDERED: FOLI1CAP2 PO (16:59)
[2016-09-14] MEDS ORDERED: ACET-2902 PO (17:02)
[2016-09-14] MEDS ORDERED: BISA10S PR (17:02)
[2016-09-14] MEDS ORDERED: A20IH1 IH (17:05)
[2016-09-14] MEDS ORDERED: ALBU2TAB42 PO (17:05)
[2016-09-14] MEDS ORDERED: PERCT PO (17:06)
[2016-09-14] MEDS ORDERED: AMOX-429 PO (17:09)
[2016-09-14 19:01] LABS: GLUCOSE,POINT OF CARE 97 MG/DL (70-110)
== END 2016-09-14 18:25 | DRG 460 ==
LOC: EMS 23:12 → 6N 09-12 02:39
PROVIDERS: ADMIT Internal Medicine; ATTEND Internal Medicine
PROC: 5A1D00Z (ICD-10-PCS; principal; 2016-09-13)
DX: I12.0 Hypertensive chronic kidney disease with stage 5 chronic kidney disease or end stage renal disease (principal); E43 Unspecified severe protein-calorie malnutrition; N18.6 End stage renal disease; N39.0 Urinary tract infection, site not specified; R62.7 Adult failure to thrive; D63.8 Anemia in other chronic diseases classified elsewhere; K21.9 Gastro-esophageal reflux disease without esophagitis; E11.22 Type 2 diabetes mellitus with diabetic chronic kidney disease; I51.7 Cardiomegaly; F19.10 Other psychoactive substance abuse, uncomplicated; F17.210 Nicotine dependence, cigarettes, uncomplicated; R53.81 Other malaise; B95.5 Unspecified streptococcus as the cause of diseases classified elsewhere; Z91.19 Patient's noncompliance with other medical treatment and regimen; Z99.2 Dependence on renal dialysis; Z79.4 Long term (current) use of insulin; Z68.25 Body mass index [BMI] 25.0-25.9, adult
CPT/HCPCS: 51702; 82962; 83605; 83735; 84100; 87040; 87081; 87086; 90935; 93005; 97161; 99285; J0696; J0885; J1200; J1644; J3370; J7030; J7040; J7050; J7060

== ENCOUNTER 2016-10-07 12:04 | Emergency (ER) | payer OTHER ==
[~2016-10-07] VITALS: Ht 152.4 cm; Wt 48.0 kg
[~2016-10-07 12:04] MED LIST changes: +A20IH1 IH; +ACET-2902 PO; +ALBU2TAB42 PO; +AMOX-429 PO; +BISA10S PR; +DSS100 PO; +EPOE4000 SQ; +HEPA500035 SQ; -INSLAN SQ; -INSU100V3 SQ; +PANT20TA PO; +PERCT PO
[2016-10-07 12:47] LABS: GLUCOSE,POINT OF CARE 147 MG/DL (70-110)
[2016-10-07 15:59] LABS: BASOPHILS % (AUTO) 0.5 % (0.0-2.0); EOSINOPHILS % (AUTO) 0.8 % (1.0-6.0); LYMPHOCYTES # (AUTO) 1.1 K/uL (1.0-4.8); LYMPHOCYTES % (AUTO) 12.5 % (22.0-44.0); MEAN CORPUSCULAR HEMOGLOBIN 30.3 pg (26.0-34.0); MEAN CORPUSCULAR HGB CONC 31.7 G/dL (31.0-37.0); MEAN CORPUSCULAR VOLUME 96 fL (80-100); MONOCYTES # (AUTO) 0.6 K/uL (0.1-1.0); MONOCYTES % (AUTO) 7.1 % (2.0-9.0); NEUTROPHILS % (AUTO) 79.1 % (40.0-70.0); PLATELET COUNT (AUTO) 390 K/uL (150-450); RED BLOOD CELL COUNT(AUTO) 2.14 MIL/uL (4.00-5.20); RED CELL DISTRIBUTION WIDTH 20.5 % (11.5-14.5); WHITE BLOOD COUNT (AUTO) 8.9 K/uL (4.5-11.0)
[2016-10-07 16:13] LABS: ANION GAP 9 mmol/L (8-16); CARBON DIOXIDE 29 mmol/L (22-29); CHLORIDE 103 mmol/L (98-107); CREATININE 4.85 mg/dL (0.60-1.30); GLOMERULAR FILTR. RATE CALC 11 mL/min (>60); POTASSIUM 3.7 mmol/L (3.5-5.1); SODIUM SERUM 141 mmol/L (136-145); UREA NITROGEN, BLOOD 35 mg/dL (7-18)
[2016-10-07 16:17] LABS: HEMATOCRIT 20.5 % (36-46); HEMOGLOBIN 6.5 g/dL (12.0-16.0)
[2016-10-07 16:39] LABS: ALANINE AMINOTRANSFERASE 20 U/L (12-78); ALBUMIN 2.6 g/dL (3.4-5.0); ASPARTATE AMINOTRANSFERASE 29 U/L (15-37); BILIRUBIN,TOTAL 0.2 mg/dL (0.1-1.0); CREATINE KINASE MB 3.3 ng/mL (0-5); CREATINE KINASE, TOTAL 199 U/L (26-192); TOTAL PROTEIN, SERUM 6.9 g/dL (6.4-8.2)
[2016-10-07 16:50] LABS: B-TYPE NATRIURETIC PEPTIDE 1020 pg/mL (0-100)
[2016-10-07] MEDS ORDERED: PANT40TA25 PO (16:59)
[2016-10-07] MEDS ORDERED: EPOE10IM SQ (16:59)
[2016-10-07] MEDS ORDERED: MORPHINE SULFATE 4 MG/ML SYRINGE IVP ONE ×2 (17:00→20:15)
[2016-10-07] MEDS ORDERED: ONDANSETRON HCL 4 MG/2 ML VIAL IVP ONE ×2 (17:00→20:15)
[2016-10-07 17:10] LABS: APPEARANCE,URINE CLEAR (CLEAR); GLUCOSE, URINE (UA) 100 mg/dL (NEGATIVE); KETONES,URINE NEGATIVE (NEGATIVE); OCCULT BLOOD,URINE SMALL (NEGATIVE); PROTEIN,URINE SEE CONFIRM (NEGATIVE)
[2016-10-07 17:23] LABS: ADD UA MICROSCOPIC YES; LEUKOCYTE ESTERASE ,URINE SMALL (NEGATIVE); SQUAMOUS EPITHELIAL CELL,UR Many /LPF (None Seen); SULFOSALICYLIC ACID,URINE 4+ (Negative)
[2016-10-07] MEDS ORDERED: SODIUM CHLORIDE 0.9% 500 ML IV ONE (18:29)
[2016-10-07 18:37] VITALS: BP 192/100
[2016-10-07] MEDS ORDERED: VITAMIN B COMP/VIT C/FOLIC ACID CAPSULE PO SCH (18:45)
[2016-10-07 18:53] VITALS: BP 194/98
[2016-10-07 19:08] VITALS: BP 201/103
[2016-10-07 19:23] VITALS: BP 204/102
[2016-10-07 19:38] VITALS: BP 198/91
[2016-10-07 22:04] LABS: HEMATOCRIT 29.8 % (36-46); HEMOGLOBIN 9.8 g/dL (12.0-16.0)
[2016-10-07] MEDS ORDERED: HydrOXYzine HCL 25 MG TABLET PO ONE (22:30)
[2016-10-07] MEDS ORDERED: AmLODIPine BESYLATE 5 MG TABLET PO ONE (22:30)
[2016-10-07 22:36] VITALS: BP 149/88
[2016-10-08] MEDS ORDERED: EPOETIN ALFA 10,000 UNITS/ML VIAL SQ SCH (09:00)
== END 2016-10-07 22:37 | disposition home or self-care (01) ==
LOC: EMS 12:05
DX: I12.0 Hypertensive chronic kidney disease with stage 5 chronic kidney disease or end stage renal disease (principal); N18.6 End stage renal disease; D64.9 Anemia, unspecified; E11.9 Type 2 diabetes mellitus without complications; K21.9 Gastro-esophageal reflux disease without esophagitis; F17.210 Nicotine dependence, cigarettes, uncomplicated; Z99.2 Dependence on renal dialysis; Z79.82 Long term (current) use of aspirin; Z79.4 Long term (current) use of insulin
CPT/HCPCS: 36415; 71010; 80053; 81001; 81002; 82550; 82553; 82962; 83540; 83550; 83880; 84484; 85014; 85018; 85025; 86850; 86900; 86901; 86920; 87077; 87086; 93005; 96374; 96375; 96376; 99291; J2270; J2405; J7040; P9016; 90935; J0885

== ENCOUNTER 2016-10-12 23:18 | Inpatient (IN) | payer OTHER ==
[~2016-10-12] VITALS: Ht 160 cm; Wt 50.3 kg
[~2016-10-12 23:18] MED LIST changes: -AMOX-429 PO; +EPOE10IM SQ; -EPOE4000 SQ; -PANT20TA PO; +PANT40TA25 PO
[2016-10-12 23:31] LABS: GLUCOSE,POINT OF CARE 71 MG/DL (70-110)
[2016-10-13 00:52] LABS: GLUCOSE COMMENT 1 Doctor Notified; GLUCOSE,POINT OF CARE 66 MG/DL (70-110)
[2016-10-13] MEDS ORDERED: DEXTROSE 50%-WATER 25 GM/50 ML SYRINGE IVP ONE (01:00)
[2016-10-13 01:32] LABS: BASOPHILS % (AUTO) 0.3 % (0.0-2.0); EOSINOPHILS % (AUTO) 0.1 % (1.0-6.0); HEMATOCRIT 26.4 % (36-46); HEMOGLOBIN 8.3 g/dL (12.0-16.0); LYMPHOCYTES # (AUTO) 0.6 K/uL (1.0-4.8); LYMPHOCYTES % (AUTO) 6.9 % (22.0-44.0); MEAN CORPUSCULAR HEMOGLOBIN 29.8 pg (26.0-34.0); MEAN CORPUSCULAR HGB CONC 31.5 G/dL (31.0-37.0); MEAN CORPUSCULAR VOLUME 95 fL (80-100); MONOCYTES # (AUTO) 0.6 K/uL (0.1-1.0); MONOCYTES % (AUTO) 6.7 % (2.0-9.0); NEUTROPHILS # (AUTO) 7.9 K/uL (1.8-7.7); PLATELET COUNT (AUTO) 286 K/uL (150-450); RED BLOOD CELL COUNT(AUTO) 2.79 MIL/uL (4.00-5.20); RED CELL DISTRIBUTION WIDTH 18.4 % (11.5-14.5); WHITE BLOOD COUNT (AUTO) 9.2 K/uL (4.5-11.0)
[2016-10-13 01:44] LABS: CALCIUM, TOTAL 8.5 mg/dL (8.8-10.5); CREATININE 3.42 mg/dL (0.60-1.30); POTASSIUM 3.3 mmol/L (3.5-5.1)
[2016-10-13 01:49] LABS: ALBUMIN 2.6 g/dL (3.4-5.0); BILIRUBIN,TOTAL 0.3 mg/dL (0.1-1.0); TOTAL PROTEIN, SERUM 6.8 g/dL (6.4-8.2)
[2016-10-13 02:21] LABS: GLUCOSE COMMENT 1 Doctor Notified; GLUCOSE,POINT OF CARE 143 MG/DL (70-110)
[2016-10-13 02:29] LABS: RBC MORPHOLOGY COMMENT ABNORMAL RBC MORPH
[2016-10-13 02:52] LABS: GLUCOSE,POINT OF CARE 114 MG/DL (70-110)
[2016-10-13] MEDS ORDERED: DEXTROSE 5%-0.45% SODIUM CHL 500 ML IV ONE (03:00)
[2016-10-13 03:16] LABS: GLUCOSE COMMENT 1 Doctor Notified; GLUCOSE,POINT OF CARE 105 MG/DL (70-110)
[2016-10-13 05:42] LABS: GLUCOSE COMMENT 1 Doctor Notified; GLUCOSE,POINT OF CARE 107 MG/DL (70-110)
[2016-10-13] MEDS ORDERED: BISACODYL 10 MG RECTAL RECTAL SUPPOSITORY PR PRN (06:00)
[2016-10-13] MEDS ORDERED: ACETAMINOPHEN 325 MG TABLET PO PRN (06:00)
[2016-10-13] MEDS ORDERED: HYDROmorphone 2 MG/ML SYRINGE IVP ONE (06:00)
[2016-10-13] MEDS ORDERED: ALBUTEROL SULFATE 2.5 MG/0.5 ML NEB SOLUTION NEB PRN (07:00)
[2016-10-13 07:46] LABS: BASOPHILS % (AUTO) 0.3 % (0.0-2.0); EOSINOPHILS % (AUTO) 0.5 % (1.0-6.0); HEMATOCRIT 25.3 % (36-46); LYMPHOCYTES # (AUTO) 1.5 K/uL (1.0-4.8); LYMPHOCYTES % (AUTO) 13.8 % (22.0-44.0); MEAN CORPUSCULAR HEMOGLOBIN 29.9 pg (26.0-34.0); MEAN CORPUSCULAR HGB CONC 31.8 G/dL (31.0-37.0); MEAN CORPUSCULAR VOLUME 94 fL (80-100); MONOCYTES # (AUTO) 0.8 K/uL (0.1-1.0); MONOCYTES % (AUTO) 7.6 % (2.0-9.0); NEUTROPHILS # (AUTO) 8.3 K/uL (1.8-7.7); NEUTROPHILS % (AUTO) 77.8 % (40.0-70.0); PLATELET COUNT (AUTO) 289 K/uL (150-450); RED BLOOD CELL COUNT(AUTO) 2.69 MIL/uL (4.00-5.20); RED CELL DISTRIBUTION WIDTH 18.9 % (11.5-14.5); WHITE BLOOD COUNT (AUTO) 10.6 K/uL (4.5-11.0)
[2016-10-13] MEDS: OxyCODONE HCL/ACETAMINOPHEN 5-325 MG TABLET PO PRN ×3 (07:59→20:17)
[2016-10-13 08:00] LABS: ALBUMIN 2.7 g/dL (3.4-5.0); BILIRUBIN,TOTAL 0.3 mg/dL (0.1-1.0); CALCIUM, TOTAL 8.2 mg/dL (8.8-10.5); CREATININE 3.61 mg/dL (0.60-1.30); POTASSIUM 3.5 mmol/L (3.5-5.1); TOTAL PROTEIN, SERUM 6.8 g/dL (6.4-8.2)
[2016-10-13 09:05] VITALS: BP_SYST 101; BP_SYST 197; BP_DIAS 65; BP_DIAS 95
[2016-10-13 11:25] VITALS: BP 155/87
[2016-10-13] MEDS: FERROUS SULFATE 325 MG EC TABLET PO SCH ×2 (11:37→17:56)
[2016-10-13] MEDS: CHOLECALCIFEROL (VIT D3) 2,000 UNITS TABLET PO SCH (11:37)
[2016-10-13] MEDS: ASPIRIN 81 MG CHEWABLE TABLET PO SCH (11:37)
[2016-10-13] MEDS: DOCUSATE SODIUM 100 MG CAPSULE PO SCH ×2 (11:37→20:17)
[2016-10-13] MEDS: AmLODIPine BESYLATE 10 MG TABLET PO SCH (11:37)
[2016-10-13] MEDS: HEPARIN SODIUM,PORCINE 5,000 UNITS/ML VIAL SQ SCH ×2 (11:38→15:56)
[2016-10-13 11:58] LABS: GLUCOSE COMMENT 1 Received Meds; GLUCOSE,POINT OF CARE 140 MG/DL (70-110)
[2016-10-13] MEDS: VITAMIN B COMP/VIT C/FOLIC ACID CAPSULE PO SCH (11:59)
[2016-10-13 15:33] VITALS: BP 153/87
[2016-10-13 17:07] LABS: GLUCOSE,POINT OF CARE 124 MG/DL (70-110)
[2016-10-13 19:33] VITALS: BP 161/76
[2016-10-13 23:33] VITALS: BP 166/88
[2016-10-14] MEDS: HEPARIN SODIUM,PORCINE 5,000 UNITS/ML VIAL SQ SCH ×4 (00:24→23:26)
[2016-10-14] MEDS: OxyCODONE HCL/ACETAMINOPHEN 5-325 MG TABLET PO PRN ×5 (00:25→22:49)
[2016-10-14 01:17] LABS: GLUCOSE,POINT OF CARE 124 MG/DL (70-110)
[2016-10-14 05:18] VITALS: BP 169/90
[2016-10-14 06:03] LABS: BASOPHILS # (AUTO) 0.06 K/uL (0.00-0.20); BASOPHILS % (AUTO) 0.7 % (0.0-2.0); EOSINOPHILS % (AUTO) 3.43 % (1.0-6.0); HEMATOCRIT 24.3 % (36-46); HEMOGLOBIN 7.8 g/dL (12.0-16.0); LYMPHOCYTES # (AUTO) 1.8 K/uL (1.0-4.8); LYMPHOCYTES % (AUTO) 20.5 % (22.0-44.0); MEAN CORPUSCULAR HEMOGLOBIN 30.3 pg (26.0-34.0); MEAN CORPUSCULAR HGB CONC 32.1 G/dL (31.0-37.0); MEAN CORPUSCULAR VOLUME 94 fL (80-100); MONOCYTES # (AUTO) 0.7 K/uL (0.1-1.0); NEUTROPHILS # (AUTO) 5.9 K/uL (1.8-7.7); NEUTROPHILS % (AUTO) 67.4 % (40.0-70.0); PLATELET COUNT (AUTO) 260 K/uL (150-450); RED BLOOD CELL COUNT(AUTO) 2.58 MIL/uL (4.00-5.20); RED CELL DISTRIBUTION WIDTH 19.2 % (11.5-14.5); WHITE BLOOD COUNT (AUTO) 8.8 K/uL (4.5-11.0)
[2016-10-14 06:50] LABS: CALCIUM, TOTAL 8.4 mg/dL (8.8-10.5); CREATININE 4.61 mg/dL (0.60-1.30); POTASSIUM 3.8 mmol/L (3.5-5.1)
[2016-10-14 07:37] VITALS: BP 158/78
[2016-10-14] MEDS: AmLODIPine BESYLATE 10 MG TABLET PO SCH (08:22)
[2016-10-14] MEDS: ASPIRIN 81 MG CHEWABLE TABLET PO SCH (08:22)
[2016-10-14] MEDS: VITAMIN B COMP/VIT C/FOLIC ACID CAPSULE PO SCH (08:22)
[2016-10-14] MEDS: DOCUSATE SODIUM 100 MG CAPSULE PO SCH ×2 (08:22→20:40)
[2016-10-14] MEDS: CHOLECALCIFEROL (VIT D3) 2,000 UNITS TABLET PO SCH (08:22)
[2016-10-14] MEDS: FERROUS SULFATE 325 MG EC TABLET PO SCH ×2 (08:22→17:57)
[2016-10-14 09:47] LABS: GLUCOSE,POINT OF CARE 107 MG/DL (70-110)
[2016-10-14 11:13] VITALS: BP 156/86
[2016-10-14] MEDS ORDERED: SODIUM CHLORIDE 0.9% 2,000 ML IV ONE (12:50)
[2016-10-14 13:52] LABS: GLUCOSE,POINT OF CARE 141 MG/DL (70-110)
[2016-10-14 17:28] VITALS: BP 164/74
[2016-10-14 17:53] LABS: GLUCOSE,POINT OF CARE 134 MG/DL (70-110)
[2016-10-14 20:04] VITALS: BP 157/78
[2016-10-15 00:14] VITALS: BP 159/78
[2016-10-15 04:39] VITALS: BP 167/72
[2016-10-15] MEDS: OxyCODONE HCL/ACETAMINOPHEN 5-325 MG TABLET PO PRN ×3 (05:23→15:28)
[2016-10-15 06:12] LABS: GLUCOSE,POINT OF CARE 116 MG/DL (70-110)
[2016-10-15 07:32] VITALS: BP 152/93
[2016-10-15] MEDS: HEPARIN SODIUM,PORCINE 5,000 UNITS/ML VIAL SQ SCH ×2 (08:49→15:28)
[2016-10-15] MEDS: VITAMIN B COMP/VIT C/FOLIC ACID CAPSULE PO SCH (08:50)
[2016-10-15] MEDS: AmLODIPine BESYLATE 10 MG TABLET PO SCH (08:50)
[2016-10-15] MEDS: ASPIRIN 81 MG CHEWABLE TABLET PO SCH (08:50)
[2016-10-15] MEDS: FERROUS SULFATE 325 MG EC TABLET PO SCH ×2 (08:50→17:45)
[2016-10-15] MEDS: CHOLECALCIFEROL (VIT D3) 2,000 UNITS TABLET PO SCH (08:50)
[2016-10-15] MEDS: DOCUSATE SODIUM 100 MG CAPSULE PO SCH (08:51)
[2016-10-15 09:30] LABS: BASOPHILS % (AUTO) 0.7 % (0.0-2.0); EOSINOPHILS % (AUTO) 3.5 % (1.0-6.0); HEMATOCRIT 25.5 % (36-46); LYMPHOCYTES # (AUTO) 1.1 K/uL (1.0-4.8); LYMPHOCYTES % (AUTO) 14.4 % (22.0-44.0); MEAN CORPUSCULAR HEMOGLOBIN 29.8 pg (26.0-34.0); MEAN CORPUSCULAR HGB CONC 31.5 G/dL (31.0-37.0); MEAN CORPUSCULAR VOLUME 95 fL (80-100); MONOCYTES # (AUTO) 0.8 K/uL (0.1-1.0); MONOCYTES % (AUTO) 9.6 % (2.0-9.0); NEUTROPHILS # (AUTO) 5.6 K/uL (1.8-7.7); NEUTROPHILS % (AUTO) 71.8 % (40.0-70.0); PLATELET COUNT (AUTO) 284 K/uL (150-450); RED BLOOD CELL COUNT(AUTO) 2.69 MIL/uL (4.00-5.20); RED CELL DISTRIBUTION WIDTH 18.4 % (11.5-14.5); WHITE BLOOD COUNT (AUTO) 7.8 K/uL (4.5-11.0)
[2016-10-15 09:41] LABS: CALCIUM, TOTAL 8.2 mg/dL (8.8-10.5); CREATININE 3.06 mg/dL (0.60-1.30); POTASSIUM 3.7 mmol/L (3.5-5.1)
[2016-10-15 10:08] LABS: RBC MORPHOLOGY COMMENT ABNORMAL RBC MORPH
[2016-10-15 11:27] VITALS: BP 168/97
[2016-10-15 12:27] LABS: GLUCOSE,POINT OF CARE 169 MG/DL (70-110)
[2016-10-15 15:37] VITALS: BP 171/96
[2016-10-15 18:01] LABS: GLUCOSE,POINT OF CARE 139 MG/DL (70-110)
[2016-10-15] MEDS ORDERED: FOLI1CAP2 PO (19:15)
== END 2016-10-15 19:35 | disposition home or self-care (01) | DRG 420 ==
LOC: EMS 23:19 → 6N 10-13 04:21
PROVIDERS: ADMIT Internal Medicine; ATTEND Internal Medicine
PROC: 5A1D00Z (ICD-10-PCS; principal; 2016-10-14)
DX: E11.649 Type 2 diabetes mellitus with hypoglycemia without coma (principal); G93.41 Metabolic encephalopathy; E43 Unspecified severe protein-calorie malnutrition; I12.0 Hypertensive chronic kidney disease with stage 5 chronic kidney disease or end stage renal disease; N18.6 End stage renal disease; D50.9 Iron deficiency anemia, unspecified; F17.210 Nicotine dependence, cigarettes, uncomplicated; E11.21 Type 2 diabetes mellitus with diabetic nephropathy; D63.8 Anemia in other chronic diseases classified elsewhere; E11.22 Type 2 diabetes mellitus with diabetic chronic kidney disease; G89.4 Chronic pain syndrome; E87.6 Hypokalemia; J45.909 Unspecified asthma, uncomplicated; K21.9 Gastro-esophageal reflux disease without esophagitis; Z99.2 Dependence on renal dialysis; Z79.4 Long term (current) use of insulin; Z79.51 Long term (current) use of inhaled steroids; Z79.899 Other long term (current) drug therapy; Z68.1 Body mass index [BMI] 19.9 or less, adult
CPT/HCPCS: 80307; 82962; 87081; 87340; 90935; 93005; 96361; 96374; 96375; 99285; J1170; J1644; J7030

== ENCOUNTER 2016-10-30 19:55 | Inpatient (IN) | payer MEDICARE, OTHER ==
[~2016-10-30] VITALS: Ht 152.4 cm; Wt 48.2 kg
[~2016-10-30 19:55] MED LIST changes: -A20IH1 IH; -ACET-2902 PO; -ALBU2TAB42 PO; -BISA10S PR; +CHOL200020 PO; -CHOL20004 PO; -HEPA500035 SQ; -INSNOV SQ; -INSU100V12 SQ; -OXYC10TA93 PO; -PERCT PO
[2016-10-30 20:17] LABS: GLUCOSE,POINT OF CARE 140 MG/DL (70-110)
[2016-10-30 21:15] LABS: BASOPHILS % (AUTO) 0.4 % (0.0-2.0); EOSINOPHILS % (AUTO) 1.8 % (1.0-6.0); LYMPHOCYTES # (AUTO) 1.2 K/uL (1.0-4.8); LYMPHOCYTES % (AUTO) 14.2 % (22.0-44.0); MEAN CORPUSCULAR HEMOGLOBIN 29.8 pg (26.0-34.0); MEAN CORPUSCULAR HGB CONC 31.1 G/dL (31.0-37.0); MEAN CORPUSCULAR VOLUME 96 fL (80-100); MONOCYTES # (AUTO) 0.8 K/uL (0.1-1.0); MONOCYTES % (AUTO) 9.2 % (2.0-9.0); NEUTROPHILS # (AUTO) 6.3 K/uL (1.8-7.7); NEUTROPHILS % (AUTO) 74.4 % (40.0-70.0); PLATELET COUNT (AUTO) 313 K/uL (150-450); RED BLOOD CELL COUNT(AUTO) 2.07 MIL/uL (4.00-5.20); RED CELL DISTRIBUTION WIDTH 17.8 % (11.5-14.5); WHITE BLOOD COUNT (AUTO) 8.4 K/uL (4.5-11.0)
[2016-10-30 21:25] LABS: HEMOGLOBIN 6.2 g/dL (12.0-16.0)
[2016-10-30 21:26] LABS: HEMATOCRIT 19.9 % (36-46)
[2016-10-30 21:30] LABS: ALANINE AMINOTRANSFERASE 26 U/L (12-78); ALBUMIN 2.9 g/dL (3.4-5.0); ANION GAP 6 mmol/L (8-16); ASPARTATE AMINOTRANSFERASE 31 U/L (15-37); BILIRUBIN,TOTAL 0.3 mg/dL (0.1-1.0); CALCIUM, TOTAL 8.6 mg/dL (8.8-10.5); CARBON DIOXIDE 35 mmol/L (22-29); CHLORIDE 97 mmol/L (98-107); CREATINE KINASE, TOTAL 134 U/L (26-192); GLOMERULAR FILTR. RATE CALC 37 mL/min (>60); SODIUM SERUM 138 mmol/L (136-145); TOTAL PROTEIN, SERUM 7.2 g/dL (6.4-8.2); UREA NITROGEN, BLOOD 8 mg/dL (7-18)
[2016-10-30 21:33] LABS: TROPONIN I 0.02 ng/mL (0.00-0.05)
[2016-10-30 21:34] LABS: POTASSIUM 2.7 mmol/L (3.5-5.1)
[2016-10-30] MEDS ORDERED: POTASSIUM CHLORIDE 20 MEQ ER TABLET PO ONE (21:45)
[2016-10-30 21:46] LABS: AMMONIA < 10 umol/L (11-32)
[2016-10-30 21:48] LABS: RBC MORPHOLOGY COMMENT ABNORMAL RBC MORPH
[2016-10-30 21:54] LABS: PROTHROMBIN TIME 10.9 SEC (9.4-11.6)
[2016-10-30] MEDS ORDERED: MORPHINE SULFATE 4 MG/ML SYRINGE IM ONE (23:45)
[2016-10-30] MEDS ORDERED: LORazepam 1 MG TABLET PO ONE (23:45)
[2016-10-30] MEDS ORDERED: ONDANSETRON HCL 4 MG/2 ML VIAL IM ONE (23:45)
[2016-10-31] VITALS (23 sets, daily range): BP systolic 140–187; BP diastolic 66–94
[2016-10-31] MEDS ORDERED: SODIUM CHLORIDE 0.9% 500 ML IV ONE (01:00)
[2016-10-31] MEDS ORDERED: ACETAMINOPHEN 325 MG TABLET PO PRN ×2 (02:15→03:30)
[2016-10-31] MEDS ORDERED: MAGNESIUM HYDROXIDE SUSPENSION 30 ML UDCUP PO PRN (03:30)
[2016-10-31] MEDS ORDERED: OxyCODONE HCL/ACETAMINOPHEN 5-325 MG TABLET PO PRN (03:30)
[2016-10-31] MEDS ORDERED: ONDANSETRON HCL 4 MG/2 ML VIAL IVP PRN (03:30)
[2016-10-31] MEDS ORDERED: 0.9% SODIUM CHLORIDE 10 ML SYRINGE IVP PRN (03:30)
[2016-10-31] MEDS ORDERED: -PHARMACY VACCINE NOTE- MISC ONE ×2 (04:15)
[2016-10-31] MEDS: OxyCODONE HCL/ACETAMINOPHEN 5-325 MG TABLET PO PRN ×2 (04:30→11:59)
[2016-10-31 06:52] LABS: GLUCOSE,POINT OF CARE 156 MG/DL (70-110)
[2016-10-31] MEDS ORDERED: FERROUS SULFATE 325 MG EC TABLET PO SCH (08:00)
[2016-10-31] MEDS ORDERED: CHOLECALCIFEROL (VIT D3) 1,000 UNITS TABLET PO SCH (09:00)
[2016-10-31] MEDS ORDERED: AmLODIPine BESYLATE 10 MG TABLET PO SCH (09:00)
[2016-10-31] MEDS ORDERED: DOCUSATE SODIUM 100 MG CAPSULE PO SCH ×2 (09:00)
[2016-10-31] MEDS ORDERED: PANTOPRAZOLE SODIUM 40 MG/VIAL IVP SCH (09:00)
[2016-10-31] MEDS ORDERED: ASPIRIN 81 MG EC TABLET PO SCH (09:00)
[2016-10-31] MEDS ORDERED: VITAMIN B COMP/VIT C/FOLIC ACID CAPSULE PO SCH ×2 (09:00)
[2016-10-31 10:17] LABS: BASOPHILS # (AUTO) 0.02 K/uL (0.00-0.20); BASOPHILS % (AUTO) 0.3 % (0.0-2.0); EOSINOPHILS # (AUTO) 0.17 K/uL (0.00-0.70); EOSINOPHILS % (AUTO) 2.34 % (1.0-6.0); HEMATOCRIT 25.9 % (36-46); HEMOGLOBIN 8.4 g/dL (12.0-16.0); LYMPHOCYTES # (AUTO) 1.1 K/uL (1.0-4.8); LYMPHOCYTES % (AUTO) 14.6 % (22.0-44.0); MEAN CORPUSCULAR HEMOGLOBIN 30.9 pg (26.0-34.0); MEAN CORPUSCULAR HGB CONC 32.4 G/dL (31.0-37.0); MEAN CORPUSCULAR VOLUME 95 fL (80-100); MONOCYTES # (AUTO) 0.8 K/uL (0.1-1.0); MONOCYTES % (AUTO) 11.2 % (2.0-9.0); NEUTROPHILS # (AUTO) 5.3 K/uL (1.8-7.7); NEUTROPHILS % (AUTO) 71.6 % (40.0-70.0); PLATELET COUNT (AUTO) 245 K/uL (150-450); RED BLOOD CELL COUNT(AUTO) 2.72 MIL/uL (4.00-5.20); RED CELL DISTRIBUTION WIDTH 17.2 % (11.5-14.5); WHITE BLOOD COUNT (AUTO) 7.5 K/uL (4.5-11.0)
[2016-10-31 10:26] LABS: CALCIUM, TOTAL 8.5 mg/dL (8.8-10.5); CREATININE 2.66 mg/dL (0.60-1.30); POTASSIUM 3.7 mmol/L (3.5-5.1)
[2016-10-31 10:43] LABS: RBC MORPHOLOGY COMMENT ABNORMAL RBC MORPH
[2016-10-31 14:28] LABS: GLUCOSE,POINT OF CARE 137 MG/DL (70-110)
[2016-11-01] MEDS ORDERED: EPOETIN ALFA 10,000 UNITS/ML 2 ML VIAL SQ SCH (09:00)
== END 2016-10-31 18:50 | disposition home or self-care (01) | DRG 682 ==
LOC: EMS 20:00 → 5N 23:17
PROVIDERS: ADMIT Internal Medicine; ATTEND Internal Medicine
PROC: 30233N1 Transfusion of Nonautologous Red Blood Cells into Peripheral Vein, Percutaneous Approach (ICD-10-PCS; principal; 2016-10-30)
DX: I12.0 Hypertensive chronic kidney disease with stage 5 chronic kidney disease or end stage renal disease (principal); E43 Unspecified severe protein-calorie malnutrition; N18.6 End stage renal disease; D63.1 Anemia in chronic kidney disease; E11.22 Type 2 diabetes mellitus with diabetic chronic kidney disease; G89.29 Other chronic pain; G47.00 Insomnia, unspecified; F17.200 Nicotine dependence, unspecified, uncomplicated; E87.6 Hypokalemia; I25.10 Atherosclerotic heart disease of native coronary artery without angina pectoris; K21.9 Gastro-esophageal reflux disease without esophagitis; Z91.19 Patient's noncompliance with other medical treatment and regimen; Z99.2 Dependence on renal dialysis
CPT/HCPCS: 82962; 86850; 86900; 86901; 86920; 87081; 93005; 96372; 99285; C9113; J0885; J2270; J2405; J7040; P9016

== ENCOUNTER 2016-11-11 17:56 | Inpatient (IN) | payer MEDICARE, OTHER ==
[~2016-11-11] VITALS: Ht 154.9 cm; Wt 49.2 kg
[~2016-11-11 17:56] MED LIST changes: -CHOL200020 PO; +CHOL20004 PO
[2016-11-11 18:21] LABS: GLUCOSE,POINT OF CARE 150 MG/DL (70-110)
[2016-11-11 18:44] LABS: BASOPHILS % (AUTO) 0.2 % (0.0-2.0); EOSINOPHILS % (AUTO) 1.5 % (1.0-6.0); LYMPHOCYTES # (AUTO) 2.2 K/uL (1.0-4.8); LYMPHOCYTES % (AUTO) 22.7 % (22.0-44.0); MEAN CORPUSCULAR HEMOGLOBIN 30.6 pg (26.0-34.0); MEAN CORPUSCULAR HGB CONC 32.8 G/dL (31.0-37.0); MEAN CORPUSCULAR VOLUME 93 fL (80-100); MONOCYTES # (AUTO) 0.6 K/uL (0.1-1.0); MONOCYTES % (AUTO) 6.6 % (2.0-9.0); NEUTROPHILS # (AUTO) 6.7 K/uL (1.8-7.7); PLATELET COUNT (AUTO) 345 K/uL (150-450); WHITE BLOOD COUNT (AUTO) 9.7 K/uL (4.5-11.0)
[2016-11-11 18:59] LABS: ALBUMIN 2.8 g/dL (3.4-5.0); BILIRUBIN,TOTAL 0.2 mg/dL (0.1-1.0); CALCIUM, TOTAL 8.2 mg/dL (8.8-10.5); CREATININE 2.11 mg/dL (0.60-1.30); TOTAL PROTEIN, SERUM 6.8 g/dL (6.4-8.2)
[2016-11-11 19:05] LABS: POTASSIUM 2.8 mmol/L (3.5-5.1)
[2016-11-11 19:06] LABS: HEMOGLOBIN 5.2 g/dL (12.0-16.0)
[2016-11-11 19:07] LABS: HEMATOCRIT 15.9 % (36-46)
[2016-11-11] MEDS ORDERED: PANTOPRAZOLE SODIUM 40 MG/VIAL IVP ONE (21:15)
[2016-11-11 21:37] LABS: GLUCOSE,POINT OF CARE 87 MG/DL (70-110)
[2016-11-11] MEDS ORDERED: HYDROCODONE/ACETAMINOPHEN 5-325 MG TABLET PO ONE (21:45)
[2016-11-11] MEDS ORDERED: ACETAMINOPHEN 325 MG TABLET PO PRN (21:45)
[2016-11-11] MEDS ORDERED: ONDANSETRON HCL 4 MG/2 ML VIAL IVP PRN (21:45)
[2016-11-11 22:25] VITALS: BP 131/72
[2016-11-11 22:40] VITALS: BP 158/73
[2016-11-11 22:55] VITALS: BP 174/78
[2016-11-11 23:25] VITALS: BP 161/74
[2016-11-11 23:55] VITALS: BP 157/73
[2016-11-12] VITALS (18 sets, daily range): BP systolic 150–190; BP diastolic 60–95
[2016-11-12 02:57] LABS: GLUCOSE,POINT OF CARE 122 MG/DL (70-110)
[2016-11-12] MEDS ORDERED: ONDANSETRON HCL 4 MG/2 ML VIAL IVP PRN (04:15)
[2016-11-12] MEDS ORDERED: MAGNESIUM HYDROXIDE SUSPENSION 30 ML UDCUP PO PRN (04:15)
[2016-11-12] MEDS ORDERED: 0.9% SODIUM CHLORIDE 10 ML SYRINGE IVP PRN (04:15)
[2016-11-12] MEDS: ACETAMINOPHEN 325 MG TABLET PO PRN (05:37)
[2016-11-12 06:16] LABS: BASOPHILS % (AUTO) 0.4 % (0.0-2.0); EOSINOPHILS % (AUTO) 1.8 % (1.0-6.0); HEMATOCRIT 30.3 % (36-46); HEMOGLOBIN 9.7 g/dL (12.0-16.0); LYMPHOCYTES # (AUTO) 2.5 K/uL (1.0-4.8); LYMPHOCYTES % (AUTO) 22.8 % (22.0-44.0); MEAN CORPUSCULAR HEMOGLOBIN 29.5 pg (26.0-34.0); MEAN CORPUSCULAR HGB CONC 32.2 G/dL (31.0-37.0); MEAN CORPUSCULAR VOLUME 92 fL (80-100); MONOCYTES % (AUTO) 9.4 % (2.0-9.0); NEUTROPHILS # (AUTO) 7.1 K/uL (1.8-7.7); NEUTROPHILS % (AUTO) 65.6 % (40.0-70.0); PLATELET COUNT (AUTO) 257 K/uL (150-450); WHITE BLOOD COUNT (AUTO) 10.8 K/uL (4.5-11.0)
[2016-11-12 06:31] LABS: ALBUMIN 2.8 g/dL (3.4-5.0); BILIRUBIN,TOTAL 0.4 mg/dL (0.1-1.0); CALCIUM, TOTAL 7.6 mg/dL (8.8-10.5); CREATININE 2.91 mg/dL (0.60-1.30); POTASSIUM 3.5 mmol/L (3.5-5.1); TOTAL PROTEIN, SERUM 6.4 g/dL (6.4-8.2)
[2016-11-12 06:52] LABS: GLUCOSE,POINT OF CARE 144 MG/DL (70-110)
[2016-11-12] MEDS: FERROUS SULFATE 325 MG EC TABLET PO SCH ×3 (08:00→18:48)
[2016-11-12 08:22] LABS: GLUCOSE,POINT OF CARE 167 MG/DL (70-110)
[2016-11-12] MEDS: DOCUSATE SODIUM 100 MG CAPSULE PO SCH ×2 (08:54→19:50)
[2016-11-12] MEDS: AmLODIPine BESYLATE 10 MG TABLET PO SCH (08:54)
[2016-11-12] MEDS: PANTOPRAZOLE SODIUM 40 MG/VIAL IVP SCH (08:55)
[2016-11-12] MEDS ORDERED: DOCUSATE SODIUM 100 MG CAPSULE PO SCH (09:00)
[2016-11-12] MEDS: MORPHINE SULFATE 2 MG/ML SYRINGE IVP PRN ×4 (09:11→23:29)
[2016-11-12] MEDS ORDERED: -PHARMACY VACCINE NOTE- MISC ONE ×2 (10:30)
[2016-11-12 12:50] LABS: GLUCOSE,POINT OF CARE 134 MG/DL (70-110)
[2016-11-12] MEDS: VITAMIN B COMP/VIT C/FOLIC ACID CAPSULE PO SCH (13:39)
[2016-11-12] MEDS ORDERED: LIDOCAINE HCL/PF 1% 2 ML VIAL IM ONE (16:55)
[2016-11-12] MEDS ORDERED: DiphenhydrAMINE HCL 50 MG/ML VIAL IM ONE (16:55)
[2016-11-12] MEDS: ZOLPIDEM TARTRATE 5 MG TABLET PO PRN (23:29)
[2016-11-13] VITALS (10 sets, daily range): BP systolic 155–184; BP diastolic 77–93
[2016-11-13 01:04] LABS: APPEARANCE,URINE CLOUDY (CLEAR); GLUCOSE, URINE (UA) NEGATIVE (NEGATIVE); KETONES,URINE NEGATIVE (NEGATIVE); LEUKOCYTE ESTERASE ,URINE NEGATIVE (NEGATIVE); OCCULT BLOOD,URINE NEGATIVE (NEGATIVE); PROTEIN,URINE SEE CONFIRM (NEGATIVE)
[2016-11-13 01:18] LABS: RBC,URINE 0-2 /HPF (0-2); SQUAMOUS EPITHELIAL CELL,UR Moderate /LPF (None Seen); SULFOSALICYLIC ACID,URINE 3+ (Negative)
[2016-11-13] MEDS: LABETALOL HCL 5 MG/ML 20 ML VIAL IVP PRN ×2 (05:43→23:33)
[2016-11-13 06:54] LABS: BASOPHILS % (AUTO) 0.5 % (0.0-2.0); EOSINOPHILS % (AUTO) 1.8 % (1.0-6.0); HEMATOCRIT 28.9 % (36-46); HEMOGLOBIN 9.4 g/dL (12.0-16.0); LYMPHOCYTES # (AUTO) 1.1 K/uL (1.0-4.8); LYMPHOCYTES % (AUTO) 9.6 % (22.0-44.0); MEAN CORPUSCULAR HEMOGLOBIN 29.9 pg (26.0-34.0); MEAN CORPUSCULAR HGB CONC 32.4 G/dL (31.0-37.0); MEAN CORPUSCULAR VOLUME 92 fL (80-100); MONOCYTES # (AUTO) 0.8 K/uL (0.1-1.0); MONOCYTES % (AUTO) 6.6 % (2.0-9.0); NEUTROPHILS # (AUTO) 9.6 K/uL (1.8-7.7); NEUTROPHILS % (AUTO) 81.5 % (40.0-70.0); PLATELET COUNT (AUTO) 242 K/uL (150-450); RED BLOOD CELL COUNT(AUTO) 3.13 MIL/uL (4.00-5.20); RED CELL DISTRIBUTION WIDTH 16.3 % (11.5-14.5); WHITE BLOOD COUNT (AUTO) 11.8 K/uL (4.5-11.0)
[2016-11-13 07:16] LABS: CALCIUM, TOTAL 7.8 mg/dL (8.8-10.5); CREATININE 4.1 mg/dL (0.60-1.30); MAGNESIUM 2.2 mg/dL (1.80-2.40); PHOSPHORUS 4.8 mg/dL (2.5-4.9); POTASSIUM 3.8 mmol/L (3.5-5.1)
[2016-11-13] MEDS: FERROUS SULFATE 325 MG EC TABLET PO SCH ×2 (08:00→16:11)
[2016-11-13] MEDS: PANTOPRAZOLE SODIUM 40 MG/VIAL IVP SCH (08:22)
[2016-11-13] MEDS: AmLODIPine BESYLATE 10 MG TABLET PO SCH (08:22)
[2016-11-13] MEDS: DOCUSATE SODIUM 100 MG CAPSULE PO SCH ×2 (09:00→19:42)
[2016-11-13] MEDS ORDERED: SODIUM CHLORIDE 0.9% 1,000 ML IV ONE ×2 (11:09→12:00)
[2016-11-13] MEDS ORDERED: MEPERIDINE-PF 25 MG/ML SYRINGE IVP PRN (11:45)
[2016-11-13] MEDS ORDERED: HYDROmorphone 2 MG/ML SYRINGE IVP PRN (11:45)
[2016-11-13] MEDS ORDERED: FentaNYL CITRATE-PF 100 MCG/2 ML VIAL IVP PRN (11:45)
[2016-11-13] MEDS ORDERED: PROPOFOL 1% 20 ML VIAL IVP ONE (12:00)
[2016-11-13] MEDS ORDERED: EPHEDrine SULFATE 50 MG/ML VIAL IM ONE (12:00)
[2016-11-13] MEDS ORDERED: ALBUTEROL SULFATE HFA 90 MCG/PUFF 8 GM INHALER IH ONE (12:00)
[2016-11-13] MEDS ORDERED: LIDOCAINE HCL/PF 2% 5 ML VIAL INJ ONE (12:00)
[2016-11-13] MEDS ORDERED: SODIUM CHLORIDE 0.9% 250 ML IV ONE (12:04)
[2016-11-13] MEDS ORDERED: PEG 3350/NA SULF,BICARB,CL/KCL 4000 ML SOLUTION PO ONE (12:45)
[2016-11-13] MEDS: MORPHINE SULFATE 2 MG/ML SYRINGE IVP PRN ×2 (15:22→19:42)
[2016-11-13] MEDS: VITAMIN B COMP/VIT C/FOLIC ACID CAPSULE PO SCH (15:23)
[2016-11-13] MEDS: FLUCONAZOLE 100 MG TABLET PO SCH (15:23)
[2016-11-13] MEDS: OXYGEN THERAPY IH SCH ×2 (15:23→19:42)
[2016-11-13] MEDS: EPOETIN ALFA 10,000 UNITS/ML 2 ML VIAL SQ SCH (15:33)
[2016-11-13] MEDS ORDERED: DiphenhydrAMINE HCL 25 MG CAPSULE PO ONE (15:45)
[2016-11-14] VITALS (10 sets, daily range): BP systolic 145–182; BP diastolic 80–99
[2016-11-14] MEDS: LABETALOL HCL 5 MG/ML 20 ML VIAL IVP PRN (00:35)
[2016-11-14] MEDS: MORPHINE SULFATE 2 MG/ML SYRINGE IVP PRN ×4 (03:35→22:27)
[2016-11-14] MEDS: OXYGEN THERAPY IH SCH ×2 (08:00→20:35)
[2016-11-14] MEDS: FERROUS SULFATE 325 MG EC TABLET PO SCH ×2 (08:00→18:29)
[2016-11-14] MEDS ORDERED: SODIUM CHLORIDE 0.9% 1,000 ML IV ONE ×2 (08:09→08:30)
[2016-11-14] MEDS: DOCUSATE SODIUM 100 MG CAPSULE PO SCH ×2 (09:00→20:35)
[2016-11-14] MEDS ORDERED: NALOXONE HCL 1 MG/ML 2 ML SYG IVP PRN (09:45)
[2016-11-14] MEDS: FLUCONAZOLE 100 MG TABLET PO SCH (10:36)
[2016-11-14] MEDS: AmLODIPine BESYLATE 10 MG TABLET PO SCH (10:36)
[2016-11-14] MEDS: VITAMIN B COMP/VIT C/FOLIC ACID CAPSULE PO SCH (10:37)
[2016-11-14] MEDS: PANTOPRAZOLE SODIUM 40 MG/VIAL IVP SCH (10:37)
[2016-11-14] MEDS ORDERED: PROPOFOL 1% 20 ML VIAL IVP ONE (12:00)
[2016-11-14] MEDS: ACETAMINOPHEN 325 MG TABLET PO PRN (15:05)
[2016-11-15] MEDS: ZOLPIDEM TARTRATE 5 MG TABLET PO PRN (01:55)
[2016-11-15 04:18] VITALS: BP 162/88
[2016-11-15 07:15] VITALS: BP 182/92
[2016-11-15] MEDS: AmLODIPine BESYLATE 10 MG TABLET PO SCH (07:28)
[2016-11-15 07:34] LABS: CALCIUM, TOTAL 8.3 mg/dL (8.8-10.5); CREATININE 5.47 mg/dL (0.60-1.30); MAGNESIUM 2.5 mg/dL (1.80-2.40); PHOSPHORUS 5.5 mg/dL (2.5-4.9); POTASSIUM 3.8 mmol/L (3.5-5.1)
[2016-11-15] MEDS: MORPHINE SULFATE 2 MG/ML SYRINGE IVP PRN ×2 (07:57→20:29)
[2016-11-15] MEDS: OXYGEN THERAPY IH SCH ×2 (08:00→20:29)
[2016-11-15] MEDS ORDERED: DiphenhydrAMINE HCL 50 MG/ML VIAL IVP PRN (09:15)
[2016-11-15] MEDS ORDERED: LIDOCAINE HCL/PF 1% 2 ML VIAL ID PRN (09:15)
[2016-11-15] MEDS ORDERED: MANNITOL 25%-12.5 GM/50 ML VIAL IVP PRN (09:15)
[2016-11-15] MEDS ORDERED: ALBUMIN HUMAN 25%-12.5GM/50ML IV BOTTLE IV PRN (09:15)
[2016-11-15 10:54] VITALS: BP 163/89
[2016-11-15] MEDS: FERROUS SULFATE 325 MG EC TABLET PO SCH ×2 (13:26→18:01)
[2016-11-15] MEDS: DOCUSATE SODIUM 100 MG CAPSULE PO SCH ×2 (13:26→20:29)
[2016-11-15] MEDS: VITAMIN B COMP/VIT C/FOLIC ACID CAPSULE PO SCH (13:26)
[2016-11-15] MEDS: FLUCONAZOLE 100 MG TABLET PO SCH (13:26)
[2016-11-15] MEDS: PANTOPRAZOLE SODIUM 40 MG/VIAL IVP SCH (13:27)
[2016-11-15] MEDS: EPOETIN ALFA 10,000 UNITS/ML 2 ML VIAL SQ SCH (13:28)
[2016-11-15] MEDS ORDERED: FLUC50TA PO (14:04)
[2016-11-15 15:11] VITALS: BP 145/93
[2016-11-15] MEDS: ACETAMINOPHEN 325 MG TABLET PO PRN (17:39)
[2016-11-15 19:35] VITALS: BP 155/84
[2016-11-16] VITALS (8 sets, daily range): BP systolic 145–172; BP diastolic 75–101
[2016-11-16] MEDS: ZOLPIDEM TARTRATE 5 MG TABLET PO PRN ×2 (02:19→21:58)
[2016-11-16] MEDS: MORPHINE SULFATE 2 MG/ML SYRINGE IVP PRN ×2 (04:30→09:21)
[2016-11-16 05:52] LABS: GLUCOSE,POINT OF CARE 131 MG/DL (70-110)
[2016-11-16] MEDS: AmLODIPine BESYLATE 10 MG TABLET PO SCH (09:21)
[2016-11-16] MEDS: FERROUS SULFATE 325 MG EC TABLET PO SCH ×2 (09:21→18:07)
[2016-11-16] MEDS: PANTOPRAZOLE SODIUM 40 MG/VIAL IVP SCH (09:21)
[2016-11-16] MEDS: DOCUSATE SODIUM 100 MG CAPSULE PO SCH ×2 (09:22→20:38)
[2016-11-16] MEDS: VITAMIN B COMP/VIT C/FOLIC ACID CAPSULE PO SCH (09:22)
[2016-11-16] MEDS: OXYGEN THERAPY IH SCH ×2 (09:37→20:38)
[2016-11-16] MEDS: FLUCONAZOLE 100 MG TABLET PO SCH (12:26)
[2016-11-16] MEDS: LABETALOL HCL 100 MG TABLET PO SCH ×2 (13:48→20:38)
[2016-11-16] MEDS ORDERED: DiphenhydrAMINE HCL 25 MG CAPSULE PO ONE (16:30)
[2016-11-16 16:41] LABS: BASOPHILS # (AUTO) 0.03 K/uL (0.00-0.20); BASOPHILS % (AUTO) 0.3 % (0.0-2.0); EOSINOPHILS % (AUTO) 2.28 % (1.0-6.0); HEMATOCRIT 30.1 % (36-46); HEMOGLOBIN 9.7 g/dL (12.0-16.0); LYMPHOCYTES # (AUTO) 1.7 K/uL (1.0-4.8); MEAN CORPUSCULAR HEMOGLOBIN 30.4 pg (26.0-34.0); MEAN CORPUSCULAR HGB CONC 32.4 G/dL (31.0-37.0); MEAN CORPUSCULAR VOLUME 94 fL (80-100); NEUTROPHILS # (AUTO) 5.7 K/uL (1.8-7.7); NEUTROPHILS % (AUTO) 65.4 % (40.0-70.0); PLATELET COUNT (AUTO) 353 K/uL (150-450); RED CELL DISTRIBUTION WIDTH 16.7 % (11.5-14.5); WHITE BLOOD COUNT (AUTO) 8.7 K/uL (4.5-11.0)
[2016-11-16] MEDS: OxyCODONE HCL/ACETAMINOPHEN 5-325 MG TABLET PO PRN (18:47)
[2016-11-17] MEDS ORDERED: DiphenhydrAMINE HCL 25 MG CAPSULE PO ONE ×2 (00:30→07:30)
[2016-11-17 04:31] VITALS: BP 158/73
[2016-11-17] MEDS: OxyCODONE HCL/ACETAMINOPHEN 5-325 MG TABLET PO PRN ×3 (04:42→16:51)
[2016-11-17 07:36] VITALS: BP 153/82
[2016-11-17] MEDS: OXYGEN THERAPY IH SCH (08:00)
[2016-11-17] MEDS: PANTOPRAZOLE SODIUM 40 MG/VIAL IVP SCH (08:42)
[2016-11-17] MEDS: DOCUSATE SODIUM 100 MG CAPSULE PO SCH (08:43)
[2016-11-17] MEDS: AmLODIPine BESYLATE 10 MG TABLET PO SCH (08:43)
[2016-11-17] MEDS: FERROUS SULFATE 325 MG EC TABLET PO SCH (08:43)
[2016-11-17] MEDS: VITAMIN B COMP/VIT C/FOLIC ACID CAPSULE PO SCH (08:43)
[2016-11-17] MEDS: FLUCONAZOLE 100 MG TABLET PO SCH (08:43)
[2016-11-17] MEDS: LABETALOL HCL 100 MG TABLET PO SCH (10:01)
[2016-11-17 11:42] VITALS: BP 143/80
[2016-11-17 15:43] VITALS: BP 141/72
== END 2016-11-17 17:10 | disposition home health service (06) | DRG 377 ==
LOC: EMS 17:59 → ICU 11-12 03:58 → AHU 11-12 06:21 → 5N 11-12 13:15
PROVIDERS: ADMIT Internal Medicine; ATTEND Internal Medicine
PROC: 5A1D60Z (ICD-10-PCS; 2016-11-13)
PROC: 0DB68ZX Excision of Stomach, Via Natural or Artificial Opening Endoscopic, Diagnostic (ICD-10-PCS; principal; 2016-11-13 13:00)
PROC: 0DJD8ZZ Inspection of Lower Intestinal Tract, Via Natural or Artificial Opening Endoscopic (ICD-10-PCS; 2016-11-14)
PROC: 30233N1 Transfusion of Nonautologous Red Blood Cells into Peripheral Vein, Percutaneous Approach (ICD-10-PCS; 2016-11-14)
DX: K92.2 Gastrointestinal hemorrhage, unspecified (principal); N18.6 End stage renal disease; E43 Unspecified severe protein-calorie malnutrition; I12.0 Hypertensive chronic kidney disease with stage 5 chronic kidney disease or end stage renal disease; B37.81 Candidal esophagitis; D64.9 Anemia, unspecified; E87.6 Hypokalemia; K21.9 Gastro-esophageal reflux disease without esophagitis; F17.210 Nicotine dependence, cigarettes, uncomplicated; E11.22 Type 2 diabetes mellitus with diabetic chronic kidney disease; E21.3 Hyperparathyroidism, unspecified; E87.5 Hyperkalemia; B19.20 Unspecified viral hepatitis C without hepatic coma; J44.9 Chronic obstructive pulmonary disease, unspecified; K29.00 Acute gastritis without bleeding; K57.90 Diverticulosis of intestine, part unspecified, without perforation or abscess without bleeding; Z53.29 Procedure and treatment not carried out because of patient's decision for other reasons; Z68.20 Body mass index [BMI] 20.0-20.9, adult; Z99.2 Dependence on renal dialysis; Z79.899 Other long term (current) drug therapy; Z79.82 Long term (current) use of aspirin; Z91.19 Patient's noncompliance with other medical treatment and regimen; Z91.15 Patient's noncompliance with renal dialysis; Z87.898 Personal history of other specified conditions
CPT/HCPCS: 36430; 70450; 71020; 82271; 82962; 83540; 83550; 83735; 84100; 86850; 86900; 86901; 86920; 87081; 87340; 88305; 88312; 93005; 97163; 97530; 99291; C9113; J0885; J1200; J2270; J2405; J2704; J3490; J3535; J7030; J7050; P9016

== ENCOUNTER 2017-02-05 18:17 | Emergency (ER) | payer MEDICARE, OTHER ==
[~2017-02-05] VITALS: Ht 152.4 cm; Wt 44.5 kg
[~2017-02-05 18:17] MED LIST changes: +FLUC50TA PO
[2017-02-05 18:47] LABS: GLUCOSE,POINT OF CARE 179 MG/DL (70-110)
[2017-02-05] MEDS ORDERED: ONDANSETRON HCL 4 MG/2 ML VIAL IVP ONE (21:30)
[2017-02-05] MEDS ORDERED: MORPHINE SULFATE 4 MG/ML SYRINGE IVP ONE (21:30)
[2017-02-05 23:41] LABS: BASOPHILS # (AUTO) 0.04 K/uL (0.00-0.20); BASOPHILS % (AUTO) 0.4 % (0.0-2.0); EOSINOPHILS # (AUTO) 0.19 K/uL (0.00-0.70); EOSINOPHILS % (AUTO) 1.89 % (1.0-6.0); LYMPHOCYTES # (AUTO) 1.5 K/uL (1.0-4.8); LYMPHOCYTES % (AUTO) 15.2 % (22.0-44.0); MEAN CORPUSCULAR HEMOGLOBIN 29.5 pg (26.0-34.0); MEAN CORPUSCULAR HGB CONC 30.3 G/dL (31.0-37.0); MEAN CORPUSCULAR VOLUME 98 fL (80-100); MONOCYTES % (AUTO) 9.5 % (2.0-9.0); NEUTROPHILS # (AUTO) 7.4 K/uL (1.8-7.7); NEUTROPHILS % (AUTO) 73.1 % (40.0-70.0); PLATELET COUNT (AUTO) 374 K/uL (150-450); RED BLOOD CELL COUNT(AUTO) 2.08 MIL/uL (4.00-5.20); RED CELL DISTRIBUTION WIDTH 19.8 % (11.5-14.5); WHITE BLOOD COUNT (AUTO) 10.2 K/uL (4.5-11.0)
[2017-02-05 23:47] LABS: HEMATOCRIT 20.3 % (36-46); HEMOGLOBIN 6.2 g/dL (12.0-16.0)
[2017-02-05 23:56] LABS: CALCIUM, TOTAL 8.3 mg/dL (8.8-10.5); CREATININE 2.55 mg/dL (0.60-1.30); POTASSIUM 3.5 mmol/L (3.5-5.1)
[2017-02-06] VITALS (9 sets, daily range): BP systolic 138–185; BP diastolic 60–97
[2017-02-06] MEDS ORDERED: FUROSEMIDE 20 MG/2 ML VIAL IVP ONE
[2017-02-06] MEDS ORDERED: DiphenhydrAMINE HCL 50 MG/ML VIAL IVP ONE
[2017-02-06 00:01] LABS: ALBUMIN 2.6 g/dL (3.4-5.0); BILIRUBIN,TOTAL 0.2 mg/dL (0.1-1.0)
[2017-02-06 00:13] LABS: PROTHROMBIN TIME 10.3 SEC (9.4-11.6)
[2017-02-06] MEDS ORDERED: MORPHINE SULFATE 2 MG/ML SYRINGE IVP ONE (03:00)
[2017-02-06 07:17] LABS: GLUCOSE,POINT OF CARE 107 MG/DL (70-110)
[2017-02-06] MEDS ORDERED: HYDROCODONE/ACETAMINOPHEN 10-325 MG TABLET PO ONE (08:00)
[2017-02-07] MEDS ORDERED: SODIUM CHLORIDE 0.9% 250 ML IV ONE ×2 (14:17→14:19)
== END 2017-02-06 09:57 | disposition home or self-care (01) ==
LOC: EMS 18:19
DX: I12.0 Hypertensive chronic kidney disease with stage 5 chronic kidney disease or end stage renal disease (principal); E11.22 Type 2 diabetes mellitus with diabetic chronic kidney disease; N18.6 End stage renal disease; K92.2 Gastrointestinal hemorrhage, unspecified; K21.9 Gastro-esophageal reflux disease without esophagitis; F17.210 Nicotine dependence, cigarettes, uncomplicated; Z99.2 Dependence on renal dialysis
CPT/HCPCS: 36415; 36430; 36556; 80053; 82962; 85025; 85610; 85651; 85730; 86850; 86900; 86901; 86920; 96374; 96375; 96376; 99285; P9016; J1200; J1940; J2270; J2405; J7050

== ENCOUNTER 2017-03-01 12:49 | Emergency (ER) | payer MEDICARE, OTHER ==
[~2017-03-01] VITALS: Ht 152.4 cm; Wt 45.5 kg
[2017-03-01 13:30] VITALS: BP 179/91
[2017-03-01] MEDS ORDERED: IBUPROFEN 600 MG TABLET PO ONE (13:30)
[2017-03-01 13:46] LABS: BASOPHILS # (AUTO) 0.02 K/uL (0.00-0.20); BASOPHILS % (AUTO) 0.2 % (0.0-2.0); EOSINOPHILS # (AUTO) 0.15 K/uL (0.00-0.70); EOSINOPHILS % (AUTO) 1.62 % (1.0-6.0); HEMATOCRIT 25.6 % (36-46); HEMOGLOBIN 8.6 g/dL (12.0-16.0); LYMPHOCYTES # (AUTO) 1.4 K/uL (1.0-4.8); LYMPHOCYTES % (AUTO) 15.3 % (22.0-44.0); MEAN CORPUSCULAR HEMOGLOBIN 31.3 pg (26.0-34.0); MEAN CORPUSCULAR HGB CONC 33.6 G/dL (31.0-37.0); MEAN CORPUSCULAR VOLUME 93 fL (80-100); MONOCYTES % (AUTO) 10.6 % (2.0-9.0); NEUTROPHILS # (AUTO) 6.7 K/uL (1.8-7.7); NEUTROPHILS % (AUTO) 72.2 % (40.0-70.0); PLATELET COUNT (AUTO) 430 K/uL (150-450); RED BLOOD CELL COUNT(AUTO) 2.75 MIL/uL (4.00-5.20); RED CELL DISTRIBUTION WIDTH 17.2 % (11.5-14.5); WHITE BLOOD COUNT (AUTO) 9.3 K/uL (4.5-11.0)
[2017-03-01 13:59] LABS: CALCIUM, TOTAL 8.3 mg/dL (8.8-10.5); CREATININE 5.72 mg/dL (0.60-1.30); POTASSIUM 5.4 mmol/L (3.5-5.1)
[2017-03-01] MEDS: SODIUM POLYSTYRENE SULFONATE 15 GM/60 ML SUSPENSION BOTTLE PO ONE ×2 (14:41→14:54)
== END 2017-03-01 14:56 | disposition home or self-care (01) ==
LOC: EMS 12:50
DX: I12.0 Hypertensive chronic kidney disease with stage 5 chronic kidney disease or end stage renal disease (principal); E11.22 Type 2 diabetes mellitus with diabetic chronic kidney disease; N18.6 End stage renal disease; I11.9 Hypertensive heart disease without heart failure; D64.9 Anemia, unspecified; G89.29 Other chronic pain; M79.1 Myalgia; F17.210 Nicotine dependence, cigarettes, uncomplicated; Z99.2 Dependence on renal dialysis; Z79.82 Long term (current) use of aspirin
CPT/HCPCS: 82962; 99285

== ENCOUNTER 2017-03-07 15:08 | Emergency (ER) | payer MEDICARE, OTHER ==
[~2017-03-07] VITALS: Ht 152.4 cm; Wt 45.5 kg
[2017-03-07 15:22] LABS: GLUCOSE,POINT OF CARE 108 MG/DL (70-110)
[2017-03-07] MEDS ORDERED: FLUC100T PO (16:20)
[2017-03-07] MEDS ORDERED: OxyCODONE HCL/ACETAMINOPHEN 5-325 MG TABLET PO ONE ×2 (16:30→19:45)
[2017-03-07 16:32] LABS: BASOPHILS % (AUTO) 0.7 % (0.0-2.0); EOSINOPHILS % (AUTO) 1.8 % (1.0-6.0); HEMATOCRIT 33.6 % (36-46); HEMOGLOBIN 11.1 g/dL (12.0-16.0); LYMPHOCYTES # (AUTO) 1.3 K/uL (1.0-4.8); LYMPHOCYTES % (AUTO) 20.2 % (22.0-44.0); MEAN CORPUSCULAR HEMOGLOBIN 30.7 pg (26.0-34.0); MEAN CORPUSCULAR HGB CONC 32.9 G/dL (31.0-37.0); MEAN CORPUSCULAR VOLUME 93 fL (80-100); MONOCYTES # (AUTO) 0.5 K/uL (0.1-1.0); MONOCYTES % (AUTO) 8.3 % (2.0-9.0); NEUTROPHILS # (AUTO) 4.5 K/uL (1.8-7.7); PLATELET COUNT (AUTO) 491 K/uL (150-450); WHITE BLOOD COUNT (AUTO) 6.5 K/uL (4.5-11.0)
[2017-03-07 16:36] LABS: CALCIUM, TOTAL 8.6 mg/dL (8.8-10.5); CREATININE 5.65 mg/dL (0.60-1.30); POTASSIUM 3.8 mmol/L (3.5-5.1)
[2017-03-07 16:42] LABS: ALBUMIN 3.4 g/dL (3.4-5.0); BILIRUBIN,TOTAL 0.4 mg/dL (0.1-1.0)
[2017-03-07 16:57] LABS: RBC MORPHOLOGY COMMENT ABNORMAL RBC MORPH
[2017-03-07 19:18] VITALS: BP 174/89
== END 2017-03-07 20:32 | disposition home or self-care (01) ==
LOC: EMS 15:13
DX: I12.0 Hypertensive chronic kidney disease with stage 5 chronic kidney disease or end stage renal disease (principal); N18.6 End stage renal disease; K21.9 Gastro-esophageal reflux disease without esophagitis; E11.22 Type 2 diabetes mellitus with diabetic chronic kidney disease; F17.210 Nicotine dependence, cigarettes, uncomplicated; G89.4 Chronic pain syndrome; Z79.82 Long term (current) use of aspirin; Z99.2 Dependence on renal dialysis
CPT/HCPCS: 82962; 99284